=== PATIENT | female | born 1930 | race Caucasian/White ===

== ENCOUNTER → 2016-07-06 | Outpatient (CLI) | payer MEDICARE, OTHER ==
[2016-07-06 08:13] LABS: INR 2.97
== END ==
LOC: M LAB 06:56
PROVIDERS: ATTEND Emergency Medicine
DX: I48.91 Unspecified atrial fibrillation (principal); Z79.01 Long term (current) use of anticoagulants

== ENCOUNTER → 2016-08-04 | Outpatient (CLI) | payer MEDICARE, OTHER ==
[2016-08-04 10:00] LABS: INR 2.84
== END ==
LOC: M LAB 09:16
PROVIDERS: ATTEND Emergency Medicine
DX: I48.91 Unspecified atrial fibrillation (principal)

== ENCOUNTER → 2016-09-03 | Outpatient (CLI) | payer MEDICARE, OTHER ==
[2016-09-03 07:56] LABS: INR 2.14
== END ==
LOC: M LAB 07:05
PROVIDERS: ATTEND Emergency Medicine
DX: Z51.81 Encounter for therapeutic drug level monitoring (principal); Z79.01 Long term (current) use of anticoagulants

== ENCOUNTER → 2016-10-02 | Outpatient (CLI) | payer MEDICARE, OTHER ==
[2016-10-02 09:58] LABS: ALBUMIN 3.6 GM/DL (3.2-5.2); ALBUMIN/GLOBULIN RATIO 1.06 (1.00-1.93); BILIRUBIN,TOTAL 0.6 MG/DL (0.2-1.0); CALCIUM LEVEL 8.1 MG/DL (8.8-10.2); CREATININE FOR GFR 1.01 MG/DL (0.55-1.02); FREE T4 1.03 NG/DL (0.76-1.46); GLOMERULAR FILTRATION RATE 55.7 (>32); POTASSIUM SERUM 3.4 MEQ/L (3.5-5.1)
== END ==
LOC: M LAB 08:21
PROVIDERS: ATTEND Emergency Medicine
DX: I10 Essential (primary) hypertension (principal); E78.2 Mixed hyperlipidemia; E55.9 Vitamin D deficiency, unspecified; E03.9 Hypothyroidism, unspecified

== ENCOUNTER → 2016-11-29 | Outpatient (CLI) | payer MEDICARE, OTHER ==
[~2016-11-29] MED LIST: ALEN35TA; ALEN35TA PO; AMLO2.5T; AMLO2.5T PO; ATOR1TAB21; ATOR1TAB21 PO; BISO10TA6; BISO10TA6 PO; DIGO0.12; DIGO0.12 PO; FURO40TA2; FURO40TA2 PO; ICAPCAP PO; LEVO100T5; LEVO100T54 PO; LISI-538; LISI-538 PO; POTA10CA PO; POTA1TAB23; SYST1SOL OU; TELM1TAB2; TELM1TAB2 PO; VITMTA PO; WARF-23; WARF-60 PO; WARF4TAB52; ZADI1DRO OU
[2016-11-29 10:19] LABS: INR 2.21
== END ==
LOC: M LAB 08:29
PROVIDERS: ATTEND Emergency Medicine
DX: I48.2 Chronic atrial fibrillation (principal)

== ENCOUNTER 2016-12-08 11:03 | Emergency (ER) | payer MEDICARE, OTHER ==
[~2016-12-08] VITALS: Ht 162.6 cm; Wt 54.5 kg
[2016-12-08] MEDS ORDERED: FURO40TA2 (11:37)
[2016-12-08] MEDS ORDERED: LISI-538 (11:37)
[2016-12-08] MEDS ORDERED: POTA1TAB23 (11:37)
[2016-12-08] MEDS ORDERED: WARF4TAB52 (11:37)
[2016-12-08] MEDS ORDERED: TELM1TAB2 (11:37)
[2016-12-08] MEDS ORDERED: LEVO100T5 (11:37)
[2016-12-08] MEDS ORDERED: BISO10TA6 (11:37)
[2016-12-08] MEDS ORDERED: ATOR1TAB21 (11:37)
[2016-12-08] MEDS ORDERED: WARF-23 (11:37)
[2016-12-08] MEDS ORDERED: ALEN35TA (11:37)
[2016-12-08] MEDS ORDERED: DIGO0.12 (11:37)
[2016-12-08] MEDS ORDERED: AMLO2.5T (11:37)
[2016-12-08] MEDS ORDERED: ASPIRIN 81 MG CHEW TABLET PO ONE (12:30)
[2016-12-08 12:50] LABS: INR 2.33
[2016-12-08 12:54] LABS: BASO % 0.5 % (0.0-1.0); EOS # 0.1 K/mm3 (0.0-0.50); EOS % 1.8 % (0.0-3.0); LARGE UNSTAINED CELL # 0.1 K/mm3 (0.0-0.4); LARGE UNSTAINED CELL % 1.7 % (0.0-4.0); LYMPH # 1.4 K/mm3 (1.5-4.5); LYMPH % 17.9 % (24.0-44.0); MEAN CORPUSCULAR HEMOGLOBIN 31.8 pg (27.0-33.0); MEAN CORPUSCULAR HGB CONC 33.3 g/dl (32.0-36.5); MEAN CORPUSCULAR VOLUME 95.5 fl (80.0-96.0); MONO # 0.4 K/mm3 (0.0-0.8); NEUTROPHILS # 5.1 K/mm3 (1.8-7.7); NEUTROPHILS % 72.1 % (36.0-66.0); PLATELET COUNT, AUTOMATED 142 k/mm3 (150-450); RED CELL DISTRIBUTION WIDTH 13.2 % (11.5-14.5); WHITE BLOOD COUNT 7.1 K/mm3 (4.0-10.0)
--- NOTE | 2016-12-08 13:03 | REP ---
Chest one-view HISTORY: Chest pain Comparison: 12/17/2010 The lungs are clear. The cardiac silhouette is enlarged. The pulmonary vasculature is normal in appearance. A cardiac pacemaker is present. Impression: Cardiomegaly. Signed by Kelvin Charles MD 12/08/2016 12:55 P
--- NOTE | 2016-12-08 13:06 | REP ---
CT HEAD WITHOUT CONTRAST: HISTORY: Dizziness. COMPARISON: 03/12/2016 Areas of decreased attenuation are present in the periventricular white matter. This represents small vessel ischemic disease. There is no intraparenchymal hemorrhage, infarct, mass or midline shift. The ventricular system and cortical sulci as well as subarachnoid space in the posterior fossa are dilated consistent with moderate volume loss. There is no extracerebral collection. The visualized sinuses are clear. IMPRESSION: 1. Small vessel ischemic disease. 2. Moderate volume loss. Signed by Kelvin Charles MD 12/08/2016 01:17 P
[2016-12-08 13:07] LABS: CALCIUM LEVEL 8.5 MG/DL (8.8-10.2); CREATININE FOR GFR 0.97 MG/DL (0.55-1.02); GLOMERULAR FILTRATION RATE 58.2 (>32); POTASSIUM SERUM 3.5 MEQ/L (3.5-5.1)
[2016-12-08 13:23] LABS: DIGOXIN LEVEL 1.4 NG/ML (0.5-2.0)
--- NOTE | 2016-12-08 16:31 | ECGEPIP ---
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
--- NOTE | 2016-12-08 16:33 | ECGEPIP ---
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
[2016-12-08 18:08] VITALS: BP 172/80
[2016-12-08] MEDS ORDERED: ALEN35TA PO (18:09)
--- NOTE | 2016-12-08 18:09 | IPNPDOC ---
Text Note Date of Service The patient was seen on 12/08/16. NOTE 86-year-old female with past medical history of hypothyroidism, vitamin D deficiency, hypertension, dyslipidemia, AR status post CABG in 2001, atrial fibrillation on Coumadin, history of nonsustained ventricular tachycardia, and permanent pacemaker with a ventricular paced rhythm presented to the ER with a chief complaint of chest pain. Upon evaluation the patient states that she had a five-minute episode of chest pain 3 days ago while at home. She describes the chest pain as sharp, 3 out of 10 in intensity, with some radiation to the left shoulder. She states that the pain was at rest. She notes that she thought the pain was related to reflux or gas as she had recently just eaten. After the single episode dissipated, she no longer had any recurrent events. She states that she is relatively healthy, and has not had any further episodes of chest pain even with moderate exertion. She denies any associated fevers, chills, shortness of breath, palpitations, abdominal pain, or any nausea/vomiting. The patient states that she came to the ER 3 days later after talking to her family and friends to "rule out anything serious" that may be going on. She reports that the episode of chest pain that she had was nothing like the AR that she had in 2001. She denies any similar occurrences. In the ER, an EKG revealed a ventricular paced rhythm. Two troponin levels have been drawn 3+ hours apart and have been within normal limits. At this time, the patient states that she is feeling well and just wanted to make sure that she got a checkup. She reports that she is eager to return home at this time. I have discussed, ideally the need to monitor her for 24 hours given her cardiac history. I did discuss the potential benefits of telemetry monitoring, serial lab work, and clinical observation with the patient. In addition, I did discuss the risks of foregoing observation with the patient which include a possible recurrence of the episode; which may possibly include a cardiac event leading to possible --At this time, the patient and her daughter who is at the bedside verbalized understanding of this and state that the patient will be closely monitored at home, and should there be a return of any symptoms, they will return to the ER for further evaluation and management. I did discuss the above findings with Dr. Givens in the ER, and we will try to arrange a close outpatient follow up with our on-call steel layer, Dr. Cabral, and the patient's PCP, Dr. Cade. General Exam: Awake, alert, oriented 4, in no acute distress, resting comfortably in bed HEENT: Normocephalic, atraumatic Heart: Normal Rate, Normal S1, S2 Chest: Clear to auscultation bilaterally, Surgical Scar noted across sternum from previous CABG Abdomen: Soft, Non-tender, Non-distended Extremities: No tenderness, No swelling VS,Fishbone, I+O VS, Fishbone, I+O Laboratory Tests 12/08/16 12:28 Red Blood Count 4.27, Mean Corpuscular Volume 95.5, Mean Corpuscular Hemoglobin 31.8, Mean Corpuscular Hemoglobin Concent 33.3, Red Cell Distribution Width 13.2 , Neutrophils (%) (Auto) 72.1 H, Lymphocytes (%) (Auto) 17.9 L, Monocytes (%) ( Auto) 6.0 H, Eosinophils (%) (Auto) 1.8, Basophils (%) (Auto) 0.5, Neutrophils # (Auto) 5.1, Lymphocytes # (Auto) 1.4 L, Monocytes # (Auto) 0.4, Eosinophils # (Auto) 0.1, Basophils # (Auto) 0.0, Calcium Level 8.5 L, Total Creatine Kinase 112 Vital Signs Date Time Temp Pulse Resp B/P (MAP) Pulse Ox O2 Delivery O2 Flow Rate FiO2 12/08/16 17:08 166/77 (106) 12/08/16 16:57 68 98 12/08/16 11:42 18 12/08/16 11:38 Room Air 12/08/16 11:20 98.0 SANTIAGO DORSEY MD Dec 08, 2016 18:09
[2016-12-08] MEDS ORDERED: ATOR1TAB21 PO (18:10)
[2016-12-08] MEDS ORDERED: BISO10TA6 PO (18:10)
[2016-12-08] MEDS ORDERED: AMLO2.5T PO (18:10)
[2016-12-08] MEDS ORDERED: FURO40TA2 PO (18:10)
[2016-12-08] MEDS ORDERED: DIGO0.12 PO (18:10)
--- NOTE | 2016-12-08 18:10 | ED PDOC ---
Post-Departure Follow-Up I was approached by the hospitalist called for admission on the patient. He evaluated the patient in the ED and felt that as the patient had a single episode of chest pain on Tuesday and two sets of negative enzymes. Patient adamantly refused admission. I discussed with Dr. Cabral who will follow patient as an outpatient. Abi Kay MD Dec 08, 2016 18:10
[2016-12-08] MEDS ORDERED: LEVO100T54 PO (18:12)
[2016-12-08] MEDS ORDERED: LISI-538 PO (18:12)
[2016-12-08] MEDS ORDERED: POTA10CA PO (18:12)
[2016-12-08] MEDS ORDERED: ZADI1DRO OU (18:14)
[2016-12-08] MEDS ORDERED: ICAPCAP PO (18:14)
[2016-12-08] MEDS ORDERED: WARF-60 PO (18:14)
[2016-12-08] MEDS ORDERED: TELM1TAB2 PO (18:14)
[2016-12-08] MEDS ORDERED: SYST1SOL OU ×2 (18:14)
[2016-12-08] MEDS ORDERED: VITMTA PO (18:14)
== END 2016-12-08 18:30 | disposition home or self-care (01) ==
LOC: EDBD 11:03 → EDSEX 11:03 → M ED 12:12
DX: R07.89 Other chest pain (principal); I51.7 Cardiomegaly; I48.91 Unspecified atrial fibrillation; I25.10 Atherosclerotic heart disease of native coronary artery without angina pectoris; I25.2 Old myocardial infarction; I10 Essential (primary) hypertension; Z95.0 Presence of cardiac pacemaker; Z95.1 Presence of aortocoronary bypass graft; Z79.01 Long term (current) use of anticoagulants; Z79.899 Other long term (current) drug therapy; Z88.2 Allergy status to sulfonamides

== ENCOUNTER → 2016-12-29 | Outpatient (CLI) | payer MEDICARE, OTHER ==
[2016-12-29 06:42] LABS: INR 1.95
== END ==
LOC: M LAB 06:12
PROVIDERS: ATTEND Emergency Medicine
DX: I48.2 Chronic atrial fibrillation (principal)

== ENCOUNTER → 2017-01-12 | Outpatient (CLI) | payer MEDICARE, OTHER ==
[2017-01-12 07:48] LABS: INR 1.84
== END ==
LOC: M LAB 06:49
PROVIDERS: ATTEND Emergency Medicine
DX: I48.2 Chronic atrial fibrillation (principal)

== ENCOUNTER → 2017-01-26 | Outpatient (CLI) | payer MEDICARE, OTHER ==
[2017-01-26 08:18] LABS: INR 3.33
== END ==
LOC: M LAB 07:16
PROVIDERS: ATTEND Emergency Medicine
DX: I48.2 Chronic atrial fibrillation (principal)

== ENCOUNTER → 2017-02-25 | Outpatient (CLI) | payer MEDICARE, OTHER ==
[2017-02-25 08:03] LABS: INR 2.45
== END ==
LOC: M LAB 07:18
PROVIDERS: ATTEND Emergency Medicine
DX: I48.2 Chronic atrial fibrillation (principal)

== ENCOUNTER → 2017-03-28 | Outpatient (CLI) | payer MEDICARE, OTHER ==
[2017-03-28 08:22] LABS: INR 2.31
== END ==
LOC: M LAB 07:23
PROVIDERS: ATTEND Emergency Medicine
DX: I48.2 Chronic atrial fibrillation (principal)

== ENCOUNTER → 2017-03-29 | Outpatient (CLI) | payer MEDICARE, OTHER ==
[2017-03-29 10:57] LABS: ALBUMIN 3.5 GM/DL (3.2-5.2); ALBUMIN/GLOBULIN RATIO 0.97 (1.00-1.93); BILIRUBIN,TOTAL 0.4 MG/DL (0.2-1.0); CALCIUM LEVEL 8.6 MG/DL (8.8-10.2); CREATININE FOR GFR 1.27 MG/DL (0.55-1.02); FREE T4 0.96 NG/DL (0.76-1.46); GLOMERULAR FILTRATION RATE 42.7 (>32); MAGNESIUM LEVEL 2.4 MG/DL (1.8-2.4); POTASSIUM SERUM 3.8 MEQ/L (3.5-5.1); TOTAL PROTEIN 7.1 GM/DL (6.4-8.2)
== END ==
LOC: M LAB 07:21
PROVIDERS: ATTEND Emergency Medicine
DX: I10 Essential (primary) hypertension (principal); E55.9 Vitamin D deficiency, unspecified; E03.9 Hypothyroidism, unspecified; E78.2 Mixed hyperlipidemia; I47.2 Ventricular tachycardia; Z79.899 Other long term (current) drug therapy

== ENCOUNTER → 2017-05-31 | Outpatient (CLI) | payer MEDICARE, OTHER ==
[2017-05-31 07:45] LABS: INR 2.73
== END ==
LOC: M LAB 06:51
PROVIDERS: ATTEND Emergency Medicine
DX: I48.2 Chronic atrial fibrillation (principal)

== ENCOUNTER → 2017-06-29 | Outpatient (CLI) | payer MEDICARE, OTHER ==
[2017-06-29 14:54] LABS: PROTHROMBIN TIME 28.9 SECONDS (12.4-14.5)
== END ==
LOC: M LAB 14:03
DX: I48.2 Chronic atrial fibrillation (principal)
CPT/HCPCS: 85610

== ENCOUNTER → 2017-07-29 | Outpatient (CLI) | payer MEDICARE, OTHER ==
[2017-07-29 14:25] LABS: INR 2.51; PROTHROMBIN TIME 28.1 SECONDS (12.4-14.5)
== END ==
LOC: M LAB 13:18
DX: I48.2 Chronic atrial fibrillation (principal)
CPT/HCPCS: 85610

== ENCOUNTER → 2017-08-25 | Outpatient (CLI) | payer MEDICARE, OTHER ==
[2017-08-25 08:12] LABS: INR 2.51; PROTHROMBIN TIME 28.1 SECONDS (12.4-14.5)
== END ==
LOC: M LAB 07:14
DX: I48.2 Chronic atrial fibrillation (principal)
CPT/HCPCS: 85610

== ENCOUNTER → 2017-09-20 | Outpatient (REF) | payer MEDICARE, OTHER | LOC: M LAB REF 19:18 | DX: N30.01 Acute cystitis with hematuria (principal) | CPT/HCPCS: 87186 ==

== ENCOUNTER → 2017-11-25 | Outpatient (CLI) | payer MEDICARE, OTHER ==
[2017-11-25 08:26] LABS: INR 2.59; PROTHROMBIN TIME 28.8 SECONDS (12.4-14.5)
[2017-11-25 08:42] LABS: ALBUMIN 3.4 GM/DL (3.2-5.2); ALBUMIN/GLOBULIN RATIO 0.94 (1.00-1.93); ALKALINE PHOSPHATASE 124 U/L (45-117); ALT/SGPT 27 U/L (12-78); ANION GAP 7 MEQ/L (8-16); AST/SGOT 21 U/L (7-37); BILIRUBIN,TOTAL 0.5 MG/DL (0.2-1.0); BLOOD UREA NITROGEN 18 MG/DL (7-18); CALCIUM LEVEL 8.2 MG/DL (8.8-10.2); CARBON DIOXIDE LEVEL 29 MEQ/L (21-32); CHLORIDE LEVEL 106 MEQ/L (98-107); CHOLESTEROL LEVEL 124 MG/DL (<200); CREATININE FOR GFR 1.43 MG/DL (0.55-1.30); FREE T4 0.87 NG/DL (0.76-1.46); GLOMERULAR FILTRATION RATE 37.1 (>32); GLUCOSE, FASTING 120 MG/DL (70-100); HDL CHOLESTEROL 49 MG/DL (>40); LDL CHOLESTEROL 47.4 MG/DL (<100); MAGNESIUM LEVEL 2.6 MG/DL (1.8-2.4); NON-HDL-C 75 MG/DL; POTASSIUM SERUM 3.3 MEQ/L (3.5-5.1); SODIUM LEVEL 142 MEQ/L (136-145); TRIGLYCERIDES LEVEL 138 MG/DL (<150)
[2017-11-25 13:06] LABS: TOTAL 25(OH) VITAMIN D 23.9 NG/ML (30.0-100.0)
== END ==
LOC: M LAB 07:14
DX: Z79.01 Long term (current) use of anticoagulants (principal); I48.2 Chronic atrial fibrillation; I10 Essential (primary) hypertension; E55.9 Vitamin D deficiency, unspecified; E03.9 Hypothyroidism, unspecified
CPT/HCPCS: 83735

== ENCOUNTER → 2017-12-26 | Outpatient (CLI) | payer MEDICARE, OTHER ==
[2017-12-26 08:05] LABS: INR 3.31; PROTHROMBIN TIME 34.4 SECONDS (12.1-14.4)
== END ==
LOC: M LAB 06:42
DX: I48.2 Chronic atrial fibrillation (principal)
CPT/HCPCS: 85610

== ENCOUNTER → 2018-01-26 | Outpatient (CLI) | payer MEDICARE, OTHER ==
[2018-01-26 08:07] LABS: INR 2.47; PROTHROMBIN TIME 27.2 SECONDS (12.1-14.4)
== END ==
LOC: M LAB 06:47
DX: Z51.81 Encounter for therapeutic drug level monitoring (principal); Z79.01 Long term (current) use of anticoagulants; I48.2 Chronic atrial fibrillation
CPT/HCPCS: 85610

== ENCOUNTER → 2018-02-28 | Outpatient (CLI) | payer MEDICARE, OTHER ==
[2018-02-28 09:20] LABS: INR 2.17; PROTHROMBIN TIME 24.6 SECONDS (12.1-14.4)
== END ==
LOC: M LAB 08:20
DX: I48.2 Chronic atrial fibrillation (principal)
CPT/HCPCS: 85610

== ENCOUNTER → 2018-03-27 | Outpatient (REF) | payer MEDICARE, OTHER ==
[2018-03-27 11:11] LABS: INR 3.18; PROTHROMBIN TIME 33.3 SECONDS (12.1-14.4)
== END ==
LOC: M LABDRWAD 10:16
DX: I48.2 Chronic atrial fibrillation (principal)
CPT/HCPCS: 85610

== ENCOUNTER → 2018-04-10 | Outpatient (REF) | payer MEDICARE, OTHER ==
[2018-04-10 13:13] LABS: ALBUMIN 3.3 GM/DL (3.2-5.2); ALBUMIN/GLOBULIN RATIO 0.97 (1.00-1.93); ALKALINE PHOSPHATASE 123 U/L (45-117); ALT/SGPT 27 U/L (12-78); ANION GAP 7 MEQ/L (8-16); AST/SGOT 23 U/L (7-37); BILIRUBIN,TOTAL 0.5 MG/DL (0.2-1.0); BLOOD UREA NITROGEN 20 MG/DL (7-18); CARBON DIOXIDE LEVEL 31 MEQ/L (21-32); CHLORIDE LEVEL 108 MEQ/L (98-107); CHOLESTEROL LEVEL 138 MG/DL (<200); CHOLESTEROL RISK RATIO 2.875 (<5); CREATININE FOR GFR 1.36 MG/DL (0.55-1.30); FREE T4 0.91 NG/DL (0.76-1.46); GLOMERULAR FILTRATION RATE 39.3 (>32); GLUCOSE, FASTING 96 MG/DL (70-100); HDL CHOLESTEROL 48 MG/DL (>40); LDL CHOLESTEROL 70 MG/DL (<100); MAGNESIUM LEVEL 2.6 MG/DL (1.8-2.4); NON-HDL-C 90 MG/DL; POTASSIUM SERUM 4.1 MEQ/L (3.5-5.1); SODIUM LEVEL 146 MEQ/L (136-145); TOTAL 25(OH) VITAMIN D 47.4 NG/ML (30.0-100.0); TOTAL PROTEIN 6.7 GM/DL (6.4-8.2); TRIGLYCERIDES LEVEL 101 MG/DL (<150)
== END ==
LOC: M LABDRWAD 12:24
DX: E55.9 Vitamin D deficiency, unspecified (principal); E03.9 Hypothyroidism, unspecified; I47.2 Ventricular tachycardia; I10 Essential (primary) hypertension
CPT/HCPCS: 83735

== ENCOUNTER → 2018-04-14 | Outpatient (CLI) | payer MEDICARE, OTHER ==
[2018-04-14 13:04] LABS: INR 2.95; PROTHROMBIN TIME 31.4 SECONDS (12.1-14.4)
== END ==
LOC: M ADAMS 10:59
DX: I48.2 Chronic atrial fibrillation (principal)
CPT/HCPCS: 85610

== ENCOUNTER → 2018-04-28 | Outpatient (REF) | payer MEDICARE, OTHER ==
[2018-04-28 14:04] LABS: INR 2.71; PROTHROMBIN TIME 29.3 SECONDS (12.1-14.4)
== END ==
LOC: M LABDRWAD 12:37
DX: I48.2 Chronic atrial fibrillation (principal)
CPT/HCPCS: 85610

== ENCOUNTER → 2018-05-12 | Outpatient (REF) | payer MEDICARE, OTHER ==
[2018-05-12 13:19] LABS: INR 3.25; PROTHROMBIN TIME 33.9 SECONDS (12.1-14.4)
== END ==
LOC: M LABDRWAD 12:34
DX: I48.2 Chronic atrial fibrillation (principal)
CPT/HCPCS: 85610

== ENCOUNTER → 2018-05-22 | Outpatient (REF) | payer MEDICARE, OTHER ==
[2018-05-22 13:33] LABS: INR 2.53; PROTHROMBIN TIME 27.8 SECONDS (12.1-14.4)
== END ==
LOC: M LAB REF 12:32
DX: I48.2 Chronic atrial fibrillation (principal)
CPT/HCPCS: 85610

== ENCOUNTER → 2018-06-05 | Outpatient (REF) | payer MEDICARE, OTHER ==
[2018-06-05 13:05] LABS: INR 3.83; PROTHROMBIN TIME 38.6 SECONDS (12.1-14.4)
== END ==
LOC: M LABDRWAD 12:29
DX: I48.2 Chronic atrial fibrillation (principal)
CPT/HCPCS: 85610

== ENCOUNTER → 2018-06-09 | Outpatient (REF) | payer MEDICARE, OTHER ==
[2018-06-09 10:26] LABS: INR 2.71; PROTHROMBIN TIME 29.3 SECONDS (12.1-14.4)
== END ==
LOC: M LABDRWAD 09:54
DX: I48.2 Chronic atrial fibrillation (principal)
CPT/HCPCS: 85610

== ENCOUNTER → 2018-07-31 | Outpatient (REF) | payer MEDICARE, OTHER ==
[~2018-07-31] MED LIST changes: -ALEN35TA; -ALEN35TA PO; +ALEN35TA37; +ALEN35TA37 PO; -AMLO2.5T; -AMLO2.5T PO; +AMLO2.5T3; +AMLO2.5T3 PO; +KLOR10TA76 PO; -POTA10CA PO; -TELM1TAB2; -TELM1TAB2 PO; +TELM1TAB37; +TELM1TAB37 PO
[2018-07-31 13:57] LABS: INR 3.01; PROTHROMBIN TIME 31.9 SECONDS (12.1-14.4)
== END ==
LOC: M LABDRWAD 12:11
PROVIDERS: ATTEND Emergency Medicine
DX: I48.2 Chronic atrial fibrillation (principal)

== ENCOUNTER → 2018-08-25 | Outpatient (REF) | payer MEDICARE, OTHER ==
[2018-08-25 12:49] LABS: INR 3.75
== END ==
LOC: M LABDRWAD 12:19
PROVIDERS: ATTEND Emergency Medicine
DX: I48.2 Chronic atrial fibrillation (principal); Z79.01 Long term (current) use of anticoagulants

== ENCOUNTER → 2018-08-31 | Outpatient (REF) | payer MEDICARE, OTHER ==
[2018-08-31 13:31] LABS: THYROID STIMULATING HORMONE 5.04 uIU/ML (0.358-3.740)
== END ==
LOC: M LABDRWAD 12:22
PROVIDERS: ATTEND Physician Assistant
DX: E03.9 Hypothyroidism, unspecified (principal)

== ENCOUNTER → 2018-09-20 | Outpatient (REF) | payer MEDICARE, OTHER ==
[2018-09-20 13:08] LABS: FREE T4 1.14 NG/DL (0.76-1.46); THYROID STIMULATING HORMONE 4.77 uIU/ML (0.358-3.740)
== END ==
LOC: M LABDRWAD 12:04
PROVIDERS: ATTEND Physician Assistant
DX: E03.9 Hypothyroidism, unspecified (principal)

== ENCOUNTER → 2018-09-25 | Outpatient (REF) | payer MEDICARE, OTHER ==
[2018-09-25 13:16] LABS: INR 3.24; PROTHROMBIN TIME 33.8 SECONDS (12.1-14.4)
== END ==
LOC: M LABDRWAD 12:08
PROVIDERS: ATTEND Physician Assistant
DX: I47.2 Ventricular tachycardia (principal); Z79.01 Long term (current) use of anticoagulants

== ENCOUNTER → 2018-11-27 | Outpatient (REF) | payer MEDICARE, OTHER ==
[2018-11-27 13:34] LABS: ALBUMIN 3.6 GM/DL (3.2-5.2); BILIRUBIN,TOTAL 0.5 MG/DL (0.2-1.0); CALCIUM LEVEL 8.6 MG/DL (8.8-10.2); CHOLESTEROL RISK RATIO 2.333 (<5); CREATININE FOR GFR 1.36 MG/DL (0.55-1.30); FREE T4 1.05 NG/DL (0.76-1.46); GLOMERULAR FILTRATION RATE 39.2 (>32); POTASSIUM SERUM 3.2 MEQ/L (3.5-5.1); THYROID STIMULATING HORMONE 5.22 uIU/ML (0.358-3.740); TOTAL PROTEIN 7.3 GM/DL (6.4-8.2)
[2018-11-27 13:35] LABS: TOTAL 25(OH) VITAMIN D 42.6 NG/ML (30.0-100.0)
== END ==
LOC: M LABDRWAD 12:45
PROVIDERS: ATTEND Physician Assistant
DX: I10 Essential (primary) hypertension (principal); E78.2 Mixed hyperlipidemia; E03.9 Hypothyroidism, unspecified; E55.9 Vitamin D deficiency, unspecified

== ENCOUNTER → 2018-12-12 | Outpatient (REF) | payer MEDICARE, OTHER ==
[2018-12-12 12:40] LABS: CALCIUM LEVEL 8.6 MG/DL (8.8-10.2); CREATININE FOR GFR 1.33 MG/DL (0.55-1.30); GLOMERULAR FILTRATION RATE 40.3 (>32); POTASSIUM SERUM 3.4 MEQ/L (3.5-5.1)
[2018-12-12 12:57] LABS: INR 3.62; PROTHROMBIN TIME 36.9 SECONDS (12.1-14.4)
== END ==
LOC: M LABDRWAD 12:04
PROVIDERS: ATTEND Physician Assistant
DX: E87.6 Hypokalemia (principal); Z79.01 Long term (current) use of anticoagulants

== ENCOUNTER → 2018-12-15 | Outpatient (REF) | payer MEDICARE, OTHER ==
[2018-12-15 13:42] LABS: INR 3.25; PROTHROMBIN TIME 33.1 SECONDS (11.8-14.0)
== END ==
LOC: M LAB REF 12:55
PROVIDERS: ATTEND Physician Assistant
DX: I47.2 Ventricular tachycardia (principal); Z79.01 Long term (current) use of anticoagulants

== ENCOUNTER → 2018-12-19 | Outpatient (REF) | payer MEDICARE, OTHER ==
[2018-12-19 13:59] LABS: INR 1.95
== END ==
LOC: M LABDRWAD 12:21
PROVIDERS: ATTEND Physician Assistant
DX: I47.2 Ventricular tachycardia (principal); Z79.01 Long term (current) use of anticoagulants

== ENCOUNTER → 2018-12-26 | Outpatient (REF) | payer MEDICARE, OTHER ==
[~2018-12-26] MED LIST changes: -BISO10TA6; -BISO10TA6 PO; +BISO10TA7; +BISO10TA7 PO
[2018-12-26 13:50] LABS: INR 2.05; PROTHROMBIN TIME 22.9 SECONDS (11.8-14.0)
== END ==
LOC: M LABDRWAD 12:30
PROVIDERS: ATTEND Physician Assistant
DX: I48.2 Chronic atrial fibrillation (principal); Z79.01 Long term (current) use of anticoagulants

== ENCOUNTER → 2018-12-29 | Outpatient (REF) | payer MEDICARE, OTHER ==
[2018-12-29 13:20] LABS: INR 2.12; PROTHROMBIN TIME 23.5 SECONDS (11.8-14.0)
== END ==
LOC: M LABDRWAD 12:57
PROVIDERS: ATTEND Physician Assistant
DX: I47.2 Ventricular tachycardia (principal); Z79.01 Long term (current) use of anticoagulants

== ENCOUNTER → 2019-01-12 | Outpatient (REF) | payer MEDICARE, OTHER | LOC: M SFHCADAM 12:09 | PROVIDERS: ATTEND Family Medicine | DX: R30.0 Dysuria (principal); I48.91 Unspecified atrial fibrillation | CPT/HCPCS: 81002; 85610; 87088; 87186; G0463 ==

== ENCOUNTER → 2019-01-15 | Outpatient (REF) | payer MEDICARE, OTHER ==
[2019-01-15 13:20] LABS: INR 1.66; PROTHROMBIN TIME 19.3 SECONDS (11.8-14.0)
== END ==
LOC: M LAB REF 12:52 → M LABDRWAD 12:52
PROVIDERS: ATTEND Physician Assistant
DX: I47.2 Ventricular tachycardia (principal); Z79.01 Long term (current) use of anticoagulants

== ENCOUNTER → 2019-01-18 | Outpatient (REF) | payer MEDICARE, OTHER ==
[2019-01-18 20:09] LABS: INR 1.82; PROTHROMBIN TIME 20.8 SECONDS (11.8-14.0)
== END ==
LOC: M LABDRWAD 19:19
PROVIDERS: ATTEND Physician Assistant
DX: I47.2 Ventricular tachycardia (principal); Z79.01 Long term (current) use of anticoagulants

== ENCOUNTER → 2019-01-24 | Outpatient (REF) | payer MEDICARE, OTHER ==
[2019-01-24 12:57] LABS: INR 2.29
== END ==
LOC: M LAB REF 12:11
PROVIDERS: ATTEND Physician Assistant
DX: I48.2 Chronic atrial fibrillation (principal); Z79.01 Long term (current) use of anticoagulants

== ENCOUNTER → 2019-02-05 | Outpatient (REF) | payer MEDICARE, OTHER ==
[~2019-02-05] MED LIST changes: +BISO10TA10; +BISO10TA10 PO; -BISO10TA7; -BISO10TA7 PO
[2019-02-05 13:51] LABS: INR 2.61; PROTHROMBIN TIME 27.8 SECONDS (11.8-14.0)
== END ==
LOC: M LABDRWAD 12:11
PROVIDERS: ATTEND Physician Assistant
DX: I47.2 Ventricular tachycardia (principal); Z79.01 Long term (current) use of anticoagulants

== ENCOUNTER → 2019-02-27 | Outpatient (REF) | payer MEDICARE, OTHER ==
[2019-02-27 14:23] LABS: CALCIUM LEVEL 8.5 MG/DL (8.8-10.2); CREATININE FOR GFR 1.35 MG/DL (0.55-1.30); GLOMERULAR FILTRATION RATE 39.6 (>32); POTASSIUM SERUM 3.2 MEQ/L (3.5-5.1)
== END ==
LOC: M LABDRWAD 12:36
PROVIDERS: ATTEND Physician Assistant
DX: E87.6 Hypokalemia (principal)

== ENCOUNTER → 2019-03-12 | Outpatient (REF) | payer MEDICARE, OTHER ==
[2019-03-12 13:56] LABS: INR 1.9; PROTHROMBIN TIME 21.6 SECONDS (11.8-14.0)
== END ==
LOC: M LABDRWAD 12:13
PROVIDERS: ATTEND Physician Assistant
DX: I47.2 Ventricular tachycardia (principal); Z79.01 Long term (current) use of anticoagulants

== ENCOUNTER → 2019-03-20 | Outpatient (REF) | payer MEDICARE, OTHER ==
[2019-03-20 13:07] LABS: INR 2.61; PROTHROMBIN TIME 27.8 SECONDS (11.8-14.0)
== END ==
LOC: M LABDRWAD 12:08
PROVIDERS: ATTEND Physician Assistant
DX: I47.2 Ventricular tachycardia (principal); Z79.01 Long term (current) use of anticoagulants

== ENCOUNTER → 2019-04-30 | Outpatient (REF) | payer MEDICARE, OTHER ==
[~2019-04-30] MED LIST changes: -ALEN35TA37; -ALEN35TA37 PO; +ALEN35TA6; +ALEN35TA6 PO
[2019-04-30 13:55] LABS: INR 3.54; PROTHROMBIN TIME 35.5 SECONDS (11.8-14.0)
== END ==
LOC: M LABDRWAD 12:47
PROVIDERS: ATTEND Physician Assistant
DX: I47.2 Ventricular tachycardia (principal); Z79.02 Long term (current) use of antithrombotics/antiplatelets

== ENCOUNTER → 2019-05-01 | Outpatient (REF) | payer MEDICARE, OTHER ==
[2019-05-01 13:51] LABS: HEMOGLOBIN 12.6 g/dl (12.0-15.5); MEAN CORPUSCULAR HEMOGLOBIN 30.7 pg (27.0-33.0); MEAN CORPUSCULAR HGB CONC 31.5 g/dl (32.0-36.5); MEAN CORPUSCULAR VOLUME 97.6 fl (80.0-96.0); PLATELET COUNT, AUTOMATED 178 10^3/uL (150-450); WHITE BLOOD COUNT 7.8 10^3/uL (4.0-10.0)
[2019-05-01 14:41] LABS: ALBUMIN 3.7 GM/DL (3.2-5.2); BILIRUBIN,TOTAL 0.7 MG/DL (0.2-1.0); CREATININE FOR GFR 1.43 MG/DL (0.55-1.30); DIGOXIN LEVEL 2.1 NG/ML (0.5-2.0); FREE T4 1.02 NG/DL (0.76-1.46); MAGNESIUM LEVEL 2.7 MG/DL (1.8-2.4); POTASSIUM SERUM 3.8 MEQ/L (3.5-5.1); THYROID STIMULATING HORMONE 6.36 uIU/ML (0.358-3.740); TOTAL PROTEIN 7.2 GM/DL (6.4-8.2)
== END ==
LOC: M SFHCADAM 10:13
PROVIDERS: ATTEND Physician Assistant
DX: I48.91 Unspecified atrial fibrillation (principal); I10 Essential (primary) hypertension; E03.9 Hypothyroidism, unspecified; E87.6 Hypokalemia
CPT/HCPCS: 80053; 80162; 83735; 84439; 84443; 85027; G0463

== ENCOUNTER → 2019-06-15 | Outpatient (REF) | payer MEDICARE, OTHER ==
[~2019-06-15] MED LIST changes: -BISO10TA10; -BISO10TA10 PO; +BISO10TA14; +BISO10TA14 PO
== END ==
LOC: M SFHCADAM 08:13
PROVIDERS: ATTEND Physician Assistant
DX: I48.91 Unspecified atrial fibrillation (principal)
CPT/HCPCS: 80162; 85610; G0463

== ENCOUNTER → 2019-09-20 | Outpatient (REF) | payer MEDICARE, OTHER ==
[2019-09-20 12:41] LABS: HEMATOCRIT 40.1 % (36.0-47.0); HEMOGLOBIN 12.6 g/dl (12.0-15.5); MEAN CORPUSCULAR HEMOGLOBIN 29.5 pg (27.0-33.0); MEAN CORPUSCULAR HGB CONC 31.4 g/dl (32.0-36.5); MEAN CORPUSCULAR VOLUME 93.9 fl (80.0-96.0); PLATELET COUNT, AUTOMATED 297 10^3/uL (150-450); RED BLOOD COUNT 4.27 10^6/uL (4.00-5.40); WHITE BLOOD COUNT 8.6 10^3/uL (4.0-10.0)
[2019-09-20 13:56] LABS: ALBUMIN 3.4 GM/DL (3.2-5.2); BILIRUBIN,TOTAL 0.7 MG/DL (0.2-1.0); CALCIUM LEVEL 8.8 MG/DL (8.8-10.2); CREATININE FOR GFR 1.32 MG/DL (0.55-1.30); DIGOXIN LEVEL 0.6 NG/ML (0.5-2.0); FREE T4 1.36 NG/DL (0.76-1.46); GLOMERULAR FILTRATION RATE 40.6 (>32); POTASSIUM SERUM 3.3 MEQ/L (3.5-5.1); THYROID STIMULATING HORMONE 3.4 uIU/ML (0.358-3.740); TOTAL PROTEIN 7.5 GM/DL (6.4-8.2)
== END ==
LOC: M SFHCADAM 11:06
PROVIDERS: ATTEND Physician Assistant
DX: N18.3 Chronic kidney disease, stage 3 (moderate) (principal); I12.9 Hypertensive chronic kidney disease with stage 1 through stage 4 chronic kidney disease, or unspecified chronic kidney disease; I48.91 Unspecified atrial fibrillation; E03.9 Hypothyroidism, unspecified; Z79.01 Long term (current) use of anticoagulants

== ENCOUNTER 2019-12-05 14:07 | Emergency (ER) | payer MEDICARE, OTHER ==
[~2019-12-05] VITALS: Ht 162.6 cm; Wt 53.2 kg
[2019-12-05 14:57] LABS: BASO # 0.1 10^3/uL (0.0-0.2); BASO % 0.8 % (0.0-1.0); EOS # 0.2 10^3/uL (0.0-0.5); EOS % 2.7 % (0.0-3.0); HEMATOCRIT 42.3 % (36.0-47.0); HEMOGLOBIN 13.4 g/dl (12.0-15.5); LYMPH # 1.7 10^3/uL (1.5-5.0); MEAN CORPUSCULAR HEMOGLOBIN 29.7 pg (27.0-33.0); MEAN CORPUSCULAR HGB CONC 31.7 g/dl (32.0-36.5); MEAN CORPUSCULAR VOLUME 93.8 fl (80.0-96.0); MONO # 0.8 10^3/uL (0.0-0.8); MONO % 10.7 % (0.0-5.0); NEUTROPHILS % 63.5 % (36.0-66.0); PLATELET COUNT, AUTOMATED 191 10^3/uL (150-450); RED BLOOD COUNT 4.51 10^6/uL (4.00-5.40); WHITE BLOOD COUNT 7.8 10^3/uL (4.0-10.0)
[2019-12-05 15:09] LABS: INR 1.4; PROTHROMBIN TIME 16.9 SECONDS (11.8-14.0)
--- NOTE | 2019-12-05 15:28 | REP ---
CHEST, SINGLE VIEW: Single view of the chest is performed and compared to a prior study of 12/08/2016. There is mild cardiomegaly. There is mild interstitial fibrosis. Tiny calcified granuloma in the right upper lobe is stable. There is no acute infiltrate or pulmonary edema. There is calcification of the thoracic aorta. Mediastinal silhouette is unchanged. Multiple sternal wires and mediastinal clips are present. Left dual-lead pacemaker is again noted. IMPRESSION: Mild cardiomegaly and chronic changes. No acute infiltrate or pulmonary edema. Electronically Signed by Wander Orozco MD 12/06/2019 11:49 A
[2019-12-05 15:30] LABS: BLOOD UREA NITROGEN 19 MG/DL (7-18); CALCIUM LEVEL 8.8 MG/DL (8.8-10.2); CARBON DIOXIDE LEVEL 33 MEQ/L (21-32); CHLORIDE LEVEL 102 MEQ/L (98-107); CK-MB VALUE MASS 5.1 NG/ML (<3.6); CPK CREATINE PHOSPHOKINASE 157 U/L (26-192); CREATININE FOR GFR 1.32 MG/DL (0.55-1.30); FREE T4 1.12 NG/DL (0.76-1.46); GLOMERULAR FILTRATION RATE 40.5 (>32); GLUCOSE, FASTING 108 MG/DL (70-100); MAGNESIUM LEVEL 2.8 MG/DL (1.8-2.4); MB/CK RELATIVE INDEX 3.25 (< OR =4); POTASSIUM SERUM 3.8 MEQ/L (3.5-5.1); SODIUM LEVEL 140 MEQ/L (136-145); TROPONIN I < 0.02 NG/ML (< 0.10)
[2019-12-05 15:52] VITALS: BP 171/80
--- NOTE | 2019-12-06 21:24 | ECGEPIP ---
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
== END 2019-12-05 16:05 | disposition home or self-care (01) ==
LOC: M ED 14:07
DX: R42 Dizziness and giddiness (principal); E78.5 Hyperlipidemia, unspecified; I48.91 Unspecified atrial fibrillation; I11.9 Hypertensive heart disease without heart failure; N18.3 Chronic kidney disease, stage 3 (moderate); Z79.01 Long term (current) use of anticoagulants; Z79.899 Other long term (current) drug therapy; Z87.891 Personal history of nicotine dependence; Z88.2 Allergy status to sulfonamides; Z95.0 Presence of cardiac pacemaker; Z95.1 Presence of aortocoronary bypass graft

== ENCOUNTER 2020-03-13 11:47 | Emergency (ER) | payer MEDICARE, OTHER ==
[~2020-03-13] VITALS: Ht 162.6 cm; Wt 58.1 kg
[~2020-03-13 11:47] MED LIST changes: +ALEN35TA54; +ALEN35TA54 PO; -ALEN35TA6; -ALEN35TA6 PO
[2020-03-13 12:35] LABS: HEMATOCRIT 40.2 % (36.0-47.0); HEMOGLOBIN 12.9 g/dl (12.0-15.5); MEAN CORPUSCULAR HEMOGLOBIN 31.2 pg (27.0-33.0); MEAN CORPUSCULAR HGB CONC 32.1 g/dl (32.0-36.5); MEAN CORPUSCULAR VOLUME 97.3 fl (80.0-96.0); PLATELET COUNT, AUTOMATED 174 10^3/uL (150-450); RED BLOOD COUNT 4.13 10^6/uL (4.00-5.40); WHITE BLOOD COUNT 8.9 10^3/uL (4.0-10.0)
[2020-03-13 12:59] LABS: CREATININE FOR GFR 1.14 MG/DL (0.55-1.30); POTASSIUM SERUM 3.4 MEQ/L (3.5-5.1)
[2020-03-13 13:10] LABS: INR 1.76; PROTHROMBIN TIME 20.9 SECONDS (11.8-14.0)
[2020-03-13 13:11] LABS: PARTIAL THROMBOPLASTIN TIME 34.9 SECONDS (25.0-38.4)
[2020-03-13 13:34] LABS: ALBUMIN 3.9 GM/DL (3.2-5.2); ALT/SGPT 36 U/L (12-78); BILIRUBIN,DIRECT 0.2 MG/DL (0.0-0.2); BILIRUBIN,TOTAL 0.4 MG/DL (0.2-1.0); CK-MB VALUE MASS 6.4 NG/ML (<3.6); CPK CREATINE PHOSPHOKINASE 190 U/L (26-192); DIGOXIN LEVEL 0.5 NG/ML (0.5-2.0); MB/CK RELATIVE INDEX 3.37 (< OR =4); TOTAL PROTEIN 7.9 GM/DL (6.4-8.2); TROPONIN I < 0.02 NG/ML (< 0.10)
[2020-03-13 16:00] VITALS: BP 168/77
[2020-03-13] MEDS ORDERED: CEPHALEXIN 500 MG CAP PO ONE (16:00)
[2020-03-13] MEDS ORDERED: KEFL500C17 PO (16:09)
--- NOTE | 2020-03-15 11:42 | ECGEPIP ---
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
== END 2020-03-13 17:06 | disposition home or self-care (01) ==
LOC: M ED 11:47 → EDBD 11:47 → M ED 17:06
DX: N39.0 Urinary tract infection, site not specified (principal); I25.2 Old myocardial infarction; I10 Essential (primary) hypertension; I48.91 Unspecified atrial fibrillation; E03.9 Hypothyroidism, unspecified; F03.90 Unspecified dementia, unspecified severity, without behavioral disturbance, psychotic disturbance, mood disturbance, and anxiety; Z95.0 Presence of cardiac pacemaker; Z88.2 Allergy status to sulfonamides; Z79.899 Other long term (current) drug therapy; Z79.01 Long term (current) use of anticoagulants

== ENCOUNTER → 2020-04-29 | Outpatient (REF) | payer MEDICARE, OTHER ==
[~2020-04-29] MED LIST changes: +KEFL500C17 PO
[2020-04-29 17:24] LABS: HEMATOCRIT 41.2 % (36.0-47.0); HEMOGLOBIN 12.5 g/dl (12.0-15.5); MEAN CORPUSCULAR HEMOGLOBIN 29.5 pg (27.0-33.0); MEAN CORPUSCULAR HGB CONC 30.3 g/dl (32.0-36.5); MEAN CORPUSCULAR VOLUME 97.2 fl (80.0-96.0); PLATELET COUNT, AUTOMATED 208 10^3/uL (150-450); RED BLOOD COUNT 4.24 10^6/uL (4.00-5.40); WHITE BLOOD COUNT 7.2 10^3/uL (4.0-10.0)
[2020-04-29 21:20] LABS: ALBUMIN 3.7 GM/DL (3.2-5.2); BILIRUBIN,TOTAL 0.6 MG/DL (0.2-1.0); CALCIUM LEVEL 9.1 MG/DL (8.8-10.2); CREATININE FOR GFR 1.34 MG/DL (0.55-1.30); DIGOXIN LEVEL 0.8 NG/ML (0.5-2.0); FOLATE 17.1 NG/ML; FREE T4 1.16 NG/DL (0.76-1.46); GLOMERULAR FILTRATION RATE 39.8 (>32); POTASSIUM SERUM 3.9 MEQ/L (3.5-5.1); THYROID STIMULATING HORMONE 3.45 uIU/ML (0.358-3.740); TOTAL PROTEIN 7.7 GM/DL (6.4-8.2)
== END ==
LOC: M SFHCADAM 11:56
PROVIDERS: ATTEND Physician Assistant
DX: I48.91 Unspecified atrial fibrillation (principal); E03.9 Hypothyroidism, unspecified; I12.9 Hypertensive chronic kidney disease with stage 1 through stage 4 chronic kidney disease, or unspecified chronic kidney disease; N18.31 Chronic kidney disease, stage 3a; F03.90 Unspecified dementia, unspecified severity, without behavioral disturbance, psychotic disturbance, mood disturbance, and anxiety

== ENCOUNTER 2020-05-01 11:30 | Inpatient (IN) | payer MEDICARE, OTHER ==
[~2020-05-01] VITALS: Ht 170.2 cm; Wt 54.7 kg
[2020-05-01 11:52] LABS: ABG BASE EXCESS 1.1 (-2.0-2.0); ABG HCO3 25.4 MEQ/L (22.0-26.0); ABG O2 SATURATION 96.7 % (95.0-99.0); ABG PARTIAL PRESSURE CO2 39.4 mmHg (35.0-45.0); ABG PARTIAL PRESSURE O2 83.3 mmHg (75.0-100.0); ABG STANDARD HCO3 25.5 MEQ/L (22.0-26.0); ABG TOTAL CO2 26.7 MEQ/L (23.0-31.0); ABG pH (ARTERIAL) 7.428 UNITS (7.350-7.450)
[2020-05-01 11:55] LABS: BASO # 0.1 10^3/uL (0.0-0.2); BASO % 0.7 % (0.0-1.0); EOS # 0.2 10^3/uL (0.0-0.5); EOS % 2.1 % (0.0-3.0); HEMOGLOBIN 12.3 g/dl (12.0-15.5); LYMPH # 1.4 10^3/uL (1.5-5.0); MEAN CORPUSCULAR HEMOGLOBIN 29.7 pg (27.0-33.0); MEAN CORPUSCULAR HGB CONC 30.8 g/dl (32.0-36.5); MEAN CORPUSCULAR VOLUME 96.6 fl (80.0-96.0); MONO # 0.7 10^3/uL (0.0-0.8); MONO % 9.1 % (0.0-5.0); NEUTROPHILS % 68.8 % (36.0-66.0); PLATELET COUNT, AUTOMATED 182 10^3/uL (150-450); RED BLOOD COUNT 4.14 10^6/uL (4.00-5.40); WHITE BLOOD COUNT 7.3 10^3/uL (4.0-10.0)
--- NOTE | 2020-05-01 12:06 | REP ---
INDICATION: altered. COMPARISON: 04/22/2017, 12/08/2016 TECHNIQUE: Non-contrast CT with coronal soft tissue reconstructions. FINDINGS: Lateral ventricles are midline symmetric dilated and upper portion of the moderately severe diffuse atrophy. Appearance is grossly unchanged from the previous study. Atrophy is greatest in the temporal and frontal lobes but is present throughout. Heterogeneous low-attenuation white matter changes throughout the periventricular, deep central and subcortical white matter representing chronic small-vessel white matter ischemic disease. I see no mass, intra or extra-axial hemorrhage, vascular territory infarct or edema. Basal cisterns are intact. The cerebellum shows atrophy and chronic changes but no acute infarct, hemorrhage or mass the posterior fossa. Skull base bone windows show mastoids and visualized sinuses clear. There is no fracture of the skull base or calvarium. 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 IMPRESSION: 1. Moderately severe diffuse atrophy with proportionate ventriculomegaly. Extensive chronic small vessel white matter ischemic changes of aging. Findings similar to the previous studies. 2. No intracranial hemorrhage, acute infarct, mass or mass effect. 3. Vascular calcifications in the carotid siphons. 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 <Electronically signed by Onofre Max > 05/01/20 [id number]
--- NOTE | 2020-05-01 12:11 | REP ---
INDICATION: Altered Mental Status. COMPARISON: 12/05/2019, 12/08/2016 TECHNIQUE: AP portable chest FINDINGS: Sternotomy wires and mediastinal clips are unchanged. There is a dual lead pacer over the left upper chest with leads in the right atrium and right ventricle. There is cardiomegaly with left atrial and left ventricular enlargement. Vascular redistribution and pulmonary edema are noted. There are diffuse interstitial and alveolar infiltrates in the bases and along the right greater than left perihilar region. Small effusion suspected on the left, slightly larger on the right. Degenerative changes are seen in the spine IMPRESSION: 1. Cardiomegaly with left atrial and ventricular enlargement and vascular redistribution with both alveolar and interstitial pulmonary edema. Concurrent pneumonitis difficult to exclude radiographically. Small effusions, right greater than left. 2. Dual lead pacer and previous sternotomy with multiple mediastinal clips. <Electronically signed by Onofre Max > 05/01/20 [id number]
[2020-05-01 12:39] LABS: ALBUMIN 3.4 GM/DL (3.2-5.2); BILIRUBIN,DIRECT 0.2 MG/DL (0.0-0.2); BILIRUBIN,TOTAL 0.5 MG/DL (0.2-1.0); THYROID STIMULATING HORMONE 1.8 uIU/ML (0.358-3.740)
[2020-05-01] MEDS ORDERED: LABETALOL 100MG/20ML VIAL IV STA (13:09)
--- NOTE | 2020-05-01 13:21 | REP ---
INDICATION: pain. COMPARISON: CT 03/12/2016 TECHNIQUE: Standard CT cervical spine trauma protocol with coronal and sagittal reconstructions FINDINGS: Degenerative changes with narrowing of the C1-2 interspace on the sagittal reconstructions with spurring slight exaggerated cervical lordosis in the upper cervical spine but no subluxation or dislocation. Craniocervical junction aligns normally. There is no fracture. Spondylosis with anterior osteophytes at C4-5 and C5-6. No compression deformities. Some mild hypertrophic facet changes present. Uncinate spurring at C5-6 on the left with some mild encroachment of the foramen. The other foramina are adequate. Spinous processes, lamina, pedicles, transverse processes and vertebral artery foramina were unremarkable. Visualized portions of the skull base and maxilla included were unremarkable. There is a small amount of mucosal thickening in the right maxillary sinus floor. Some bilateral apical pleural scarring evident. Apical pleural fluid posteriorly on the right representing effusion. IMPRESSION: Some mild degenerative changes without fracture, avulsion or malalignment in the cervical spine. Uncinate spurring on the left at C5-6 with mild foraminal encroachment. No significant or acute bony finding. Right pleural effusion seen at the apex and bilateral apical pleural scarring present. <Electronically signed by Onofre Max > 05/01/20 [id number]
--- NOTE | 2020-05-01 13:48 | REP ---
INDICATION: sob. COMPARISON: Portable chest 05/01/2020, 12/05/2019 TECHNIQUE: Noncontrast chest CT protocol with coronal and sagittal reconstructions. FINDINGS: Dual lead pacer over the left upper chest with lead tips in the right atrium and right ventricle. Sternotomy wires noted. There are bilateral pleural effusions moderate on the right smaller on the left. Adjacent to these are areas of confluent or compressive atelectasis versus a pneumonic infiltrates. More anterior aspect of the lung smith were clear there are few small scattered nodules peripherally in the bilateral lower lobes there is scarring peripherally in the left upper lobe, bilateral apical pleuroparenchymal scarring (mild) and calcified granuloma in the right upper lobe. Some cylindrical bronchiectatic changes are seen. The heart is enlarged with left atrial and ventricular enlargement. I do not see significant interstitial changes. Calcified aorta without aneurysm. Heavily calcified mitral annulus and calcifications at the aortic root and throughout the aorta. No pathologic sized mediastinal or hilar adenopathy. No axillary or supraclavicular mass. No hiatal hernia. Upper abdominal organs show atrophy of the left kidney and compensatory hypertrophy of the right. That portion of liver included was unremarkable. Spleen was without acute finding. Gallbladder seen in part is intact without calcified stone. The portion of the pancreas included also unremarkable. Bone windows show the sternum, manubrium, vertebral bodies and posterior elements without acute finding. Sternotomy wires are intact. Mediastinal clips again seen. Portions of clavicles, scapulae, humeral heads and ribs seen were unremarkable. IMPRESSION: 1. Bilateral pleural effusions, moderate on the right extending up to the apex, smaller on the left but also extending upward to above the aortic arch. There is compressive atelectasis or consolidative infiltrate adjacent to the pleural effusion on both sides. That layering effusion and infiltrates cause the appearance on radiograph. I cannot see interstitial edema in the lung smith. There are few scattered small noncalcified nodules peripherally in the lower lobes and a calcified granuloma in the right upper lobe. 2. Dual lead pacer, prior sternotomy, cardiomegaly with left atrial and ventricular enlargement are noted. Aortic with calcifications but no aneurysm. Degenerative changes but no acute bony findings. <Electronically signed by Onofre Max > 05/01/20 [id number]
[2020-05-01 13:56] LABS: INR 2.43
[2020-05-01 14:01] LABS: CALCIUM LEVEL 8.9 MG/DL (8.8-10.2); CREATININE FOR GFR 1.18 MG/DL (0.55-1.30); DIGOXIN LEVEL 0.7 NG/ML (0.5-2.0); GLOMERULAR FILTRATION RATE 46.1 (>32); POTASSIUM SERUM 3.6 MEQ/L (3.5-5.1)
[2020-05-01 14:01] LABS: AMPHETAMINES LEVEL URINE NEGATIVE (NEGATIVE); BARBITURATES URINE NEGATIVE (NEGATIVE); BENZODIAZEPINES URINE NEGATIVE (NEGATIVE); CANNABINOIDS URINE NEGATIVE (NEGATIVE); COCAINE METABOLITE URINE NEGATIVE (NEGATIVE); METHADONE URINE NEGATIVE (NEGATIVE); OPIATES URINE NEGATIVE (NEGATIVE); PHENCYCLIDINE URINE NEGATIVE (NEGATIVE)
[2020-05-01] MEDS ORDERED: ACETAMINOPHEN TAB 650MG DOSE (2X325MG) PO PRN (14:15)
[2020-05-01] MEDS ORDERED: LEVO75TA4 PO (14:29)
[2020-05-01] MEDS ORDERED: DIGO0.123 PO (14:29)
[2020-05-01] MEDS ORDERED: AMLO1TAB24 PO (14:29)
[2020-05-01] MEDS ORDERED: WARF-23 PO (14:34)
[2020-05-01] MEDS ORDERED: WARF4TAB52 PO (14:34)
--- NOTE | 2020-05-01 15:14 | HPEPDOC ---
[facility] Medical History & Physical Date of Admission May 01, 2020 Date of Service: May 01, 2020 Attending Physician: Christin Locke MD History and Physical CHIEF COMPLAINT: Loss of consciousness HISTORY OF PRESENT ILLNESS: Patient is an 89-year-old female with past medical history of coronary artery disease status post PR 2, hypertension, chronic atrial fibrillation, hypothyroidism, hypokalemia, history of recurrent urinary tract infection who presented to [facility] after having been found unconscious by her daughter at home. According to accounts her daughter found her mother unresp onsive in the next room over. Her daughter has been coming over to check on her periodically as her mom's vision has been worsening and her home health aide has not been available for the past 2 weeks to help. When she checked her mom's pulse she stated that she didn't feel one. She called 911. EMS responded and found the patient to have a systolic blood pressure of 200 mmHg, she withdrew to pain but her eyes were shot and she couldn't verbalize or follow commands. She was taken to the emergency room for further evaluation. The emergency room CT of the head, neck were negative. She had a ventricular paced rhythm on ECG. Labs were unremarkable. She had no neurological deficits on exam. After a smoker to time the patient was awake alert and oriented 3. She had not remember the events of earlier completely but states that when she woke up she was in her house with EMS present. She does not recall any chest pain, shortness of breath, palpitations, lightheadedness, dizziness, recent falls, recent medication changes, fevers, chills, recent illnesses, decreased appetite, blurry vision, extremity weakness prior to her unconscious event. She also denies any bowel or bladder loss when she woke up or tongue biting. There was no noted seizure activity by EMS or her daughter. In the emergency room blood pressure was found to be 170 systolic. The patient states her blood pressure is always high like this and she is on multiple medications at home which she states to be compliant with. She has been having a difficult time living on her own due to decreased eyesight and not having a home health aide available. The patient was ultimately admitted for syncope, hypertensive emergency. REVIEW OF SYSTEMS: CONSTITUTIONAL: Denies unexplained weight gain or weight loss, loss of appetite, fever, night sweats EYES: Denies eye drainage, eye pain, dry/irritated eye EARS, NOSE, MOUTH, THROAT: Denies difficulty hearing, ringing in ears, mouth sores, loose teeth, sore throat, facial numbness or pain NECK: Denies swollen glands CARDIOVASCULAR: Denies racing heart, chest pains, swelling of feet or legs, pain in legs with walking RESPIRATORY: Denies shortness of breath, night sweats, wheezing, sputum production, oxygen at home, coughing up blood, cough lasting > 1 month GASTROINTESTINAL: Denies abdominal pain, constipation, bloody stool, diarrhea, heartburn, nausea, vomiting GENITOURINARY: Denies painful urination, bloody urine, frequent urination, urgency, leaking urine, impotence MUSCULOSKELETAL: Denies joint pain, muscle pain, leg swelling INTEGUMENTARY: Denies rash, itching, new skin lesion, change in existing skin lesion, hair loss or increase, breast changes. NEUROLOGICAL: Denies headaches, numbness or tingling PSYCHIATRIC: Denies depression, anxiety, recurrent bad thoughts, mood swings, hallucinations PAST MEDICAL HISTORY: 1. Chronic atrial fibrillation on Coumadin 2. CAD status post PR 2 and ventricular pacemaker 3. Hypertension 4. Hypothyroidism 5. Hypokalemia 6. Hx of recurrent urinary tract infection 7. Cataracts PAST SURGICAL HISTORY: 1. Ventricular pacemaker placement 2. cataract surgery 3. CABG 4. hysterectomy FAMILY HISTORY: Father: Healthy, in 70's Mother: Healthy, at 70's SOCIAL HISTORY: Denies alcohol, drugs or smoking hx. Lives alone, home health aid quit 2 weeks ago and her daughter and POA has been helping her at home. PcP- Dr. Marvin's office, Does not know name of cardiology office. Uses a cane or walker to ambulate. ALLERGIES: Please see below. HOME MEDICATIONS: Please see below. PHYSICAL EXAMINATION: VS: Please see below. CONSTITUTIONAL: No acute distress, resting comfortably, AAO x 3 EYES: PERRLA, EOM intact HENT, MOUTH: Normocephalic, atraumatic, moist mucous membranes NECK: SUPPLE, no JVD, no lymphadenopathy, no carotid bruit CV: ventricularly paced rhythm, S1S2 normal, no murmurs/rubs/gallops RESPIRATORY: Clear to auscultation bilaterally, no rales/rhonchi/wheezes GI: BS positive in 4 quadrants, soft, nontender, nondistended, no rebound or guarding, no organomegaly : Deferred MUSCULOSKELETAL: Normal ROM. No cyanosis, clubbing, swelling, joint deformity, extremity edema INTEGUMENTARY: Intact, no rashes, no lesions, no erythema NEUROLOGIC: Cranial Nerves II-XII are intact, no focal deficits PSYCHIATRIC: Mood and affect are normal LABORATORY DATA: Please see below IMAGING: CT head: 1. Moderately severe diffuse atrophy with proportionate ventriculomegaly. Extensive chronic small vessel white matter ischemic changes of aging. Findings similar to the previous studies. 2. No intracranial hemorrhage, acute infarct, mass or mass effect. 3. Vascular calcifications in the carotid siphons. 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 CXR: 1. Cardiomegaly with left atrial and ventricular enlargement and vascular redistribution with both alveolar and interstitial pulmonary edema. Concurrent pneumonitis difficult to exclude radiographically. Small effusions, right greater than left. 2. Dual lead pacer and previous sternotomy with multiple mediastinal clips. CT chest: 1. Bilateral pleural effusions, moderate on the right extending up to the apex, smaller on the left but also extending upward to above the aortic arch. There is compressive atelectasis or consolidative infiltrate adjacent to the pleural effusion on both sides. That layering effusion and infiltrates cause the appearance on radiograph. I cannot see interstitial edema in the lung smith. There are few scattered small noncalcified nodules peripherally in the lower lobes and a calcified granuloma in the right upper lobe. 2. Dual lead pacer, prior sternotomy, cardiomegaly with left atrial and ventricular enlargement are noted. Aortic with calcifications but no aneurysm. Degenerative changes but no acute bony findings. CT cervical spine: Some mild degenerative changes without fracture, avulsion or malalignment in the cervical spine. Uncinate spurring on the left at C5-6 with mild foraminal encroachment. No significant or acute bony finding. Right pleural effusion seen at the apex and bilateral apical pleural scarring present. ASSESSMENT: 89-year-old female with past medical history of coronary artery disease status post PR 2, hypertension, chronic atrial fibrillation, hypothyroidism, hypokalemia, history of recurrent urinary tract infection admitted for syncope r/o cardiac vs. neuro cause, hypertensive emergency. PLAN: 1. Syncope, r/o cardiac vs. neuro cause. In presence of uncontrolled BP as well -Unresponsive for some time, no post-ictal phase, CT head and neuro exam neg -ECG: ventricular paced -F/u echocardiogram, carotid doppler, tele monitor, troponins, BP control with home meds and PRN meds. -Neuro checks Q4 hrs, orthostatics BID 2. Hypertensive emergency with loss of consciousness -Systolic in field >200 mmHg, ER 150-170's systolic -States that her BP can go up high like this at times, difficult to control. -Monitor closely on tele. -Resume all home medications. Can add hydralazine PRN 3. Chronic atrial fibrillation, dual lead PM -INR therapeutic on coumadin. -C/w BB, digoxin, warfarin at home dosing 4. CAD s/p PR x 2 -Denies chest pain, n/v, shortness of breath -ECG: ventricularly paced. -Trop x1 ng, f/u trops -Monitor on tele -C/w home cardiac medications 5. Hypokalemia, chronic and likely 2/2 to lasix use -C/w potassium supplement 6. Hx of recurrent UTI -UA +, UCx pending -Home keflex TID -F/u UCx -Ceftriaxone IV daily 7. Bilateral pleural effusions -Saturating well on RA -Identified on imaging above -C/w home lasix. 8. HLD -C/w statin 9. Hypothyroidism -C/w home levothyroxine 10. DVT px -C/w warfarin home dose DISPOSITION: PT/OT ordered. Per patient, her vision has been worsening. We will need to touch base with daughter to see if patient's needs are being met at home, she is POA. She is a DNR/DNI, need to fill out MOLST with patient. Vital Signs Vital Signs Date Time Temp Pulse Resp B/P (MAP) Pulse Ox O2 Delivery O2 Flow Rate FiO2 05/01/20 13:46 68 200/81 05/01/20 12:04 97.6 05/01/20 11:44 95 Room Air Laboratory Data Labs 24H Laboratory Tests 2 05/01/20 11:38: Immature Granulocyte % (Auto) 0.3, Neutrophils (%) (Auto) 68.8H, Lymphocytes (%) (Auto) 19.0L, Monocytes (%) (Auto) 9.1H, Eosinophils (%) (Auto) 2.1, Basophils (%) (Auto) 0.7, Neutrophils # (Auto) 5.0, Lymphocytes # (Auto) 1.4L, Monocytes # (Auto) 0.7, Eosinophils # (Auto) 0.2, Basophils # (Auto) 0.1, Nucleated Red Blood Cells % (auto) 0.0, Anion Gap 7L, Glomerular Filtration Rate 46.1, Osmolality 297, Lactic Acid Level 0.9, Calcium Level 8.9, Total Bilirubin 0.5, Direct Bilirubin 0.2, Aspartate Amino Transf (AST/SGOT) 32, Alanine Aminotransferase (ALT/SGPT) 32, Alkaline Phosphatase 122H, Ammonia < 10, Total Protein 7.0, Albumin 3.4, Albumin/Globulin Ratio 0.9L, Thyroid Stimulating Hormone (TSH) 1.800, Digoxin Level 0.7 05/01/20 11:40: Prothrombin Time 27.0H, Prothromb Time International Ratio 2.43, Blood Gas Bicarbonate Standard 25.5, Arterial Blood pH 7.428, Arterial Blood Partial Pressure CO2 39.4, Arterial Blood Partial Pressure O2 83.3, Arterial Blood Total CO2 26.7, Arterial Blood HCO3 25.4, Arterial Blood Base Excess 1.1, Arterial Blood Oxygen Saturation 96.7, Carboxyhemoglobin 2.1H 05/01/20 11:58: POC Glucose (Misc Panel) 106H, POC Sodium (Misc Panel) 142, POC Potassium (Misc Panel) 3.6, POC Chloride (Misc Panel) 105, POC Total CO2 (Misc Panel) 28.0H, POC Blood Urea Nitrogen (Misc Panel 23, POC Ionized Calcium (Misc Panel) 4.6, POC Creatinine (Misc Panel) 1.3, POC Hematocrit (Misc Panel) 39.0 05/01/20 11:59: POC Troponin I (Misc) 0.01 05/01/20 13:16: Urine Opiates Screen NEGATIVE, Urine Methadone Screen NEGATIVE, Urine Barbiturates Screen NEGATIVE, Urine Phencyclidine Screen NEGATIVE, Urine Amphetamines Screen NEGATIVE, Urine Benzodiazepines Screen NEGATIVE, Urine Cocaine Metabolite Screen NEGATIVE, Urine Cannabinoids Screen NEGATIVE 05/01/20 13:17: Urine Color YELLOW, Urine Appearance CLEAR, Urine pH 7.0, Urine Specific [place] 1.009, Urine Protein NEGATIVE, Urine Glucose (UA) NEGATIVE, Urine Ketones NEGAT ABRAHAM, Urine Blood NEGATIVE, Urine Nitrite NEGATIVE, Urine Bilirubin NEGATIVE, Urine Urobilinogen 0.2, Urine Leukocyte Esterase 2+H, Urine WBC (Auto) 6H, Urine RBC (Auto) 9H, Urine Hyaline Casts (Auto) 0, Urine Bacteria (Auto) 1+H, Urine Squamous Epithelial Cells 3, Urine Sperm (Auto) CBC/BMP Laboratory Tests 05/01/20 11:38 Microbiology Microbiology 05/01/20 Urine Culture, Received Pending Home Medications Scheduled Amlodipine Besylate (Amlodipine Besylate) 5 Mg Tablet, 5 MG PO BID Atorvastatin Calcium (Atorvastatin Calcium) 20 Mg Tab, 20 MG PO QHS Bisoprolol Fumarate (Bisoprolol Fumarate) 10 Mg Tab, 10 MG PO BID Digoxin (Digoxin) 125 Mcg Tablet, 125 MCG PO 3XW MON, WED, FRI Furosemide (Furosemide) 40 Mg Tab, 40 MG PO BID TAKES AM AND NOON Ketotifen Fumarate (Zaditor) 0.025 % Avery, 1 DROP OU QHS Levothyroxine Sodium (Levothyroxine Sodium) 75 Mcg Tablet, 75 MCG PO DAILY Potassium Chloride (Klor-Con M10) 10 Meq Tabcr, 10 MEQ PO DAILY Propylene Glycol/Peg 400 (Systane 0.3-0.4% Eye Drops) 15 Ml Debbie, 2 DROP OU DAILY Warfarin Sodium (Warfarin Sodium) 5 Mg Tablet, 5 MG PO QPM Warfarin Sodium (Warfarin Sodium) 1 Mg Tablet, 2 MG PO 5XW 7MG TOTAL ON TUE, , TUE, , SAT Allergies Coded Allergies: Sulfa (Sulfonamide Antibiotics) (Verified Adverse Reaction, Intermediate, eyes red and swollen, 03/13/20) A-FIB/CHADSVASC A-FIB History Current/History of A-Fib/PAF?: Yes Current PO Anticoag Therapy: Yes Age/Risk Factor Scoring CHADSVASC: CHADSVASC Response (Comments) Value Age Risk Factor Age >/= 75 years old 2 Gender Risk Factor Female 1 Hx of CHF No 0 Hx of HTN Yes 1 Hx of Stroke/TIA/or VTE No 0 Hx of Diabetes No 0 Hx of Vascular Disease No 0 Total 4 Treatment Treatment ordered: Christin Alberto MD May 01, 2020 15:14
--- NOTE | 2020-05-01 15:18 | REP ---
INDICATION: syncope COMPARISON: None. TECHNIQUE: Real-time ultrasound evaluation and duplex Doppler interrogation of the extracranial carotid vasculature is performed. FINDINGS: Reversed flow is observed in the left vertebral artery, question subclavian stenosis. Flow could not be observed in the right vertebral artery, possible occlusion.. Right carotid: The right common carotid artery shows diffuse intimal thickening but is otherwise unremarkable. There ismild mixed plaquing in the right carotid bulb and proximal ICA on two-dimensional scanning. Color flow and spectral Doppler interrogation are unremarkable on the right. Velocity chart right carotid: Right CCA PSV: 91 cm/S Right ICA PSV: 140 cm/S Right ICA EDV: 19 cm/S Right ECA PSV: 252 cm/S Right ICA/CCA ratio: 1.5 Left carotid: The left common carotid artery shows diffuse intimal thickening but is otherwise unremarkable. There is mild mixed plaquing in the left carotid bulb and proximal ICA on two-dimensional scanning. Color flow and spectral Doppler interrogation are unremarkable on the left. Velocity chart left carotid: Left CCA PSV: 101 cm/S Left ICA PSV: 90 cm/S Left ICA EDV: 19 cm/S Left ECA PSV: 155 cm/S Left ICA/CCA ratio: 0.9 IMPRESSION: Less than 50% category narrowing in the right internal carotid artery by Doppler velocity criteria. Stenotic flow velocities are observed in the external carotid artery on the right. No vertebral artery flow could be detected on the right. Question occlusion. Less than 50% category narrowing in the left ICA by Doppler velocity criteria. Mildly increased peak systolic flow velocities are observed in the external carotid artery on the left. Reversed flow is observed in the left vertebral artery raising suspicion of subclavian artery stenosis or occlusion, subclavian steal phenomena. <Electronically signed by Mauricio Amaya > 05/01/20 [id number]
[2020-05-01 15:42] VITALS: BP_SYST 110; BP_SYST 118; BP_SYST 130; BP_DIAS 60; BP_DIAS 70
[2020-05-01 15:47] VITALS: BP 130/60
[2020-05-01] MEDS: WARFARIN SOD 5MG TAB PO SCH (16:59)
[2020-05-01] MEDS: FUROSEMIDE 40 MG TAB PO SCH (16:59)
[2020-05-01] MEDS: cefTRIAXone SOD 1 GM in D5W MINI-BAG PLUS 50 ML IV SCH (17:00)
[2020-05-01] MEDS ORDERED: SLF 3 ML SYR IV PRN (17:15)
[2020-05-01 19:17] VITALS: BP 124/59
[2020-05-01] MEDS: ATORVASTATIN 20 MG TAB PO SCH (22:12)
[2020-05-01] MEDS: SLF 3 ML SYR IV SCH (22:13)
[2020-05-01] MEDS: amLODIPine 5 MG TAB PO SCH (22:13)
[2020-05-01] MEDS: bisoproloL fumarate 10 MG TAB PO SCH (22:16)
[2020-05-02] VITALS (10 sets, daily range): BP systolic 110–183; BP diastolic 62–83
[2020-05-02 05:32] LABS: HEMATOCRIT 37.4 % (36.0-47.0); HEMOGLOBIN 11.7 g/dl (12.0-15.5); MEAN CORPUSCULAR HEMOGLOBIN 30.5 pg (27.0-33.0); MEAN CORPUSCULAR HGB CONC 31.3 g/dl (32.0-36.5); MEAN CORPUSCULAR VOLUME 97.7 fl (80.0-96.0); PLATELET COUNT, AUTOMATED 162 10^3/uL (150-450); RED BLOOD COUNT 3.83 10^6/uL (4.00-5.40); WHITE BLOOD COUNT 7.3 10^3/uL (4.0-10.0)
[2020-05-02 06:01] LABS: ALBUMIN 2.9 GM/DL (3.2-5.2); BILIRUBIN,TOTAL 0.4 MG/DL (0.2-1.0); CALCIUM LEVEL 8.3 MG/DL (8.8-10.2); CREATININE FOR GFR 1.15 MG/DL (0.55-1.30); GLOMERULAR FILTRATION RATE 47.5 (>32); POTASSIUM SERUM 3.6 MEQ/L (3.5-5.1); TOTAL PROTEIN 6.2 GM/DL (6.4-8.2)
[2020-05-02] MEDS: SLF 3 ML SYR IV SCH ×3 (06:32→22:58)
[2020-05-02] MEDS: LEVOTHYROXINE 75MCG TABLET (0.075MG) PO SCH (06:32)
[2020-05-02] MEDS ORDERED: ENOXAPARIN 40MG/0.4ML SYRINGE (J1650 PER 10MG) SC SCH (09:00)
--- NOTE | 2020-05-02 09:05 | ECGEPIP ---
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
[2020-05-02] MEDS: POTASSIUM CHLORIDE 10 MEQ SR TABLET PO SCH (09:43)
[2020-05-02] MEDS: POLYVINYL ALCOHOL OPHTH SOLN 15 ML(LIQUITEARS) OU SCH (09:43)
[2020-05-02] MEDS: amLODIPine 5 MG TAB PO SCH ×2 (09:44→20:51)
[2020-05-02] MEDS: FUROSEMIDE 40 MG TAB PO SCH ×2 (09:44→16:27)
[2020-05-02] MEDS: bisoproloL fumarate 10 MG TAB PO SCH ×2 (09:44→20:51)
[2020-05-02] MEDS: DIGOXIN 0.125 MG TAB PO SCH (09:44)
[2020-05-02] MEDS: WARFARIN SOD 5MG TAB PO SCH (16:27)
[2020-05-02] MEDS: cefTRIAXone SOD 1 GM in D5W MINI-BAG PLUS 50 ML IV SCH (16:28)
--- NOTE | 2020-05-02 17:27 | IPNPDOC ---
Date Seen The patient was seen on 05/02/20. Progress Note SUBJECTIVE: Orthostatic + today with nursing but neg with PT. Echo done, pending result. Doppler neg. Patient feels much improved and denies chest pain, shortness of breath, lightheadedness, n/v, fevers or chills. OBJECTIVE PHYSICAL EXAMINATION: VS: Please see below. CONSTITUTIONAL: No acute distress, resting comfortably, AAO x 3 EYES: PERRLA, EOM intact HENT, MOUTH: Normocephalic, atraumatic, moist mucous membranes NECK: SUPPLE, no JVD, no lymphadenopathy, no carotid bruit CV: ventricularly paced rhythm, S1S2 normal, no murmurs/rubs/gallops RESPIRATORY: Clear to auscultation bilaterally, no rales/rhonchi/wheezes GI: BS positive in 4 quadrants, soft, nontender, nondistended, no rebound or guarding, no organomegaly : Deferred MUSCULOSKELETAL: Normal ROM. No cyanosis, clubbing, swelling, joint deformity, extremity edema INTEGUMENTARY: Intact, no rashes, no lesions, no erythema NEUROLOGIC: Cranial Nerves II-XII are intact, no focal deficits PSYCHIATRIC: Mood and affect are normal LABORATORY DATA: Please see below IMAGING: Echocardiogram: Pending results Doppler carotids: Less than 50% category narrowing in the right internal carotid artery by Doppler velocity criteria. Stenotic flow velocities are observed in the external carotid artery on the right. No vertebral artery flow could be detected on the right. Question occlusion. Less than 50% category narrowing in the left ICA by Doppler velocity criteria. Mildly increased peak systolic flow velocities are observed in the external carotid artery on the left. Reversed flow is observed in the left vertebral artery raising suspicion of subclavian artery stenosis or occlusion, subclavian steal phenomena. CT head: 1. Moderately severe diffuse atrophy with proportionate ventriculomegaly. Extensive chronic small vessel white matter ischemic changes of aging. Findings similar to the previous studies. 2. No intracranial hemorrhage, acute infarct, mass or mass effect. 3. Vascular calcifications in the carotid siphons. 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 CXR: 1. Cardiomegaly with left atrial and ventricular enlargement and vascular redistribution with both alveolar and interstitial pulmonary edema. Concurrent pneumonitis difficult to exclude radiographically. Small effusions, right greater than left. 2. Dual lead pacer and previous sternotomy with multiple mediastinal clips. CT chest: 1. Bilateral pleural effusions, moderate on the right extending up to the apex, smaller on the left but also extending upward to above the aortic arch. There is compressive atelectasis or consolidative infiltrate adjacent to the pleural effusion on both sides. That layering effusion and infiltrates cause the appearance on radiograph. I cannot see interstitial edema in the lung smith. There are few scattered small noncalcified nodules peripherally in the lower lobes and a calcified granuloma in the right upper lobe. 2. Dual lead pacer, prior sternotomy, cardiomegaly with left atrial and ventricular enlargement are noted. Aortic with calcifications but no aneurysm. Degenerative changes but no acute bony findings. CT cervical spine: Some mild degenerative changes without fracture, avulsion or malalignment in the cervical spine. Uncinate spurring on the left at C5-6 with mild foraminal encroachment. No significant or acute bony finding. Right pleural effusion seen at the apex and bilateral apical pleural scarring present. ASSESSMENT: 89-year-old female with past medical history of coronary artery disease status post ND 2, hypertension, chronic atrial fibrillation, hypothyroidism, hypokalemia, history of recurrent urinary tract infection admitted for syncope r/o cardiac vs. neuro cause, hypertensive emergency. PLAN: #Syncope, r/o cardiac vs. orthostatic hypotension vs. uncontrolled HTN -No tele events overnight, orthostatic hypotension + this AM by nursing -Carotid doppler above: Could not r/o subclavian artery occulsion vs. subclavian steal syndrome; however, no arm claudication, vertigo, difference in pressure between arms. Will discuss with vascular in the AM -ECG: ventricular paced -F/u echocardiogram, tele monitor, troponins, BP control with home meds and PRN meds. -Orthostatics BID until tomorrow -PT: recommending rehab #HTN, resolved Hypertensive emergency with loss of consciousness -States that her BP can go up high, difficult to control. -Monitor closely on tele. -C/w all home medications. Can add hydralazine PRN #Unsteady gait likely multifactorial 2/2 to physical deconditioning, poor eyesit e. -Hx of recent falls with hitting head -PT: recommending rehab -Also made aware today that Adult Protective Services has concerns about patient's living situation. -PFS to touch base with her daughter to see what family can provide or not provide. -C/w PT/OT #Chronic atrial fibrillation, dual lead PM -INR therapeutic on coumadin. -C/w BB, digoxin, warfarin at home dosing #CAD s/p ND x 2 -Denies chest pain, n/v, shortness of breath -ECG: ventricularly paced. -Trops neg -Monitor on tele -C/w home cardiac medications #Hypokalemia, chronic and likely 2/2 to lasix use -C/w potassium supplement #Hx of recurrent UTI -UA + -UCx: NG -D/c ceftriaxone #Bilateral pleural effusions -Saturating well on RA -Identified on imaging above -C/w home lasix. # HLD -C/w statin # Hypothyroidism -C/w home levothyroxine #DVT px -C/w warfarin home dose DISPOSITION: PT: recommending rehab, unsafe to return to home currently. APS concerned about patient. PFS to reach out to daughter. VS, I&O, 24H, Fishbone Vital Signs/I&O Vital Signs Date Time Temp Pulse Resp B/P (MAP) Pulse Ox O2 Delivery O2 Flow Rate FiO2 05/02/20 16:00 98.5 66 18 162/68 (99) 95 Room Air I&O- Last 24 Hours up to 6 AM 05/02/20 06:00 Intake Total 350 ml Output Total 0 ml Balance 350 ml Laboratory Data 24H LABS Laboratory Tests 2 05/02/20 04:47: Nucleated Red Blood Cells % (auto) 0.0, Anion Gap 7L, Glomerular Filtration Rate 47.5, Calcium Level 8.3L, Total Bilirubin 0.4, Aspartate Amino Transf (AST/SGOT) 24, Alanine Aminotransferase (ALT/SGPT) 25, Alkaline Phosphatase 112, Total Protein 6.2L, Albumin 2.9L, Albumin/Globulin Ratio 0.9L CBC/BMP Laboratory Tests 05/02/20 04:47 Microbiology Microbiology 05/01/20 Urine Culture - Final, Complete Current Medications Current Medications Medications (Trade) Dose Ordered Sig/Yusra Route PRN Reason Start Time Stop Time Status Last Admin Dose Admin Acetaminophen (Tylenol Tab) 650 mg Q4H PRN PO PAIN OR FEVER 05/01/20 14:15 Amlodipine Besylate (Norvasc) 5 mg BID PO 05/01/20 21:00 11/6/20 09:44 Artificial Tears (Akwa Tears) 2 drop DAILY OU 05/02/20 09:00 05/02/20 09:43 Atorvastatin Calcium (Lipitor) 20 mg QHS PO 05/01/20 21:00 05/01/20 22:12 Bisoprolol Fumarate (Zebeta) 10 mg BID PO 05/01/20 21:00 05/02/20 09:44 Ceftriaxone Sodium 1 gm/ Dextrose 50 ml @ 100 mls/hr Q24H IV 05/01/20 16:00 05/02/20 16:28 Digoxin (Lanoxin) 0.125 mg MoWeFr@0900 PO 05/02/20 09:00 05/02/20 09:44 Enoxaparin Sodium (Lovenox) 40 mg DAILY SC 05/02/20 09:00 05/01/20 15:13 DC Furosemide (Lasix) 40 mg BID@0900,1700 PO 05/01/20 17:00 05/02/20 16:27 Home Med (Med Rec Complete!) ASDIRECTED XX 05/01/20 14:45 05/01/20 14:41 DC Labetalol HCl (Normodyne, Trandate) 10 mg STAT STAT IV 05/01/20 13:09 05/01/20 13:10 DC 05/01/20 13:46 Levothyroxine Sodium (Synthroid) 75 mcg DAILY@0600 PO 05/02/20 06:00 05/02/20 06:32 Potassium Chloride (Micro-K Extencaps) 10 meq DAILY PO 05/02/20 09:00 05/02/20 09:43 Sodium Chloride (Saline Lock Flush) 2 ml ASDIRECTED PRN IV SEE LABEL COMMENTS 05/01/20 17:15 Sodium Chloride (Saline Lock Flush) 2 ml SLF IV 05/01/20 22:00 05/02/20 16:28 Warfarin Sodium (Coumadin) 2 mg SuTuWeThSa@1700 PO 05/03/20 17:00 Warfarin Sodium (Coumadin) 5 mg QPM@1700 PO 05/01/20 17:00 05/02/20 16:27 Allergies Coded Allergies: Sulfa (Sulfonamide Antibiotics) (Verified Adverse Reaction, Intermediate, eyes red and swollen, 03/13/20) Christin Locke MD May 02, 2020 17:27
[2020-05-02] MEDS: ATORVASTATIN 20 MG TAB PO SCH (20:51)
[2020-05-03] VITALS (9 sets, daily range): BP systolic 108–176; BP diastolic 60–78
[2020-05-03] MEDS: LEVOTHYROXINE 75MCG TABLET (0.075MG) PO SCH (05:21)
[2020-05-03] MEDS: SLF 3 ML SYR IV SCH ×3 (05:29→22:00)
[2020-05-03 05:45] LABS: HEMATOCRIT 43.1 % (36.0-47.0); HEMOGLOBIN 13.4 g/dl (12.0-15.5); MEAN CORPUSCULAR HGB CONC 31.1 g/dl (32.0-36.5); MEAN CORPUSCULAR VOLUME 96.6 fl (80.0-96.0); PLATELET COUNT, AUTOMATED 193 10^3/uL (150-450); RED BLOOD COUNT 4.46 10^6/uL (4.00-5.40); WHITE BLOOD COUNT 10.2 10^3/uL (4.0-10.0)
[2020-05-03 05:56] LABS: INR 2.61; PROTHROMBIN TIME 28.5 SECONDS (12.5-14.3)
[2020-05-03 06:11] LABS: ALBUMIN 3.5 GM/DL (3.2-5.2); BILIRUBIN,TOTAL 0.5 MG/DL (0.2-1.0); CREATININE FOR GFR 1.29 MG/DL (0.55-1.30); GLOMERULAR FILTRATION RATE 41.6 (>32); POTASSIUM SERUM 3.3 MEQ/L (3.5-5.1); TOTAL PROTEIN 8.1 GM/DL (6.4-8.2)
[2020-05-03] MEDS: POTASSIUM CHLORIDE 10 MEQ SR TABLET PO SCH (08:13)
[2020-05-03] MEDS: bisoproloL fumarate 10 MG TAB PO SCH ×2 (08:14→20:40)
[2020-05-03] MEDS: POLYVINYL ALCOHOL OPHTH SOLN 15 ML(LIQUITEARS) OU SCH (08:15)
[2020-05-03] MEDS: FUROSEMIDE 40 MG TAB PO SCH ×2 (08:15→16:44)
[2020-05-03] MEDS: amLODIPine 5 MG TAB PO SCH ×2 (08:15→20:40)
[2020-05-03] MEDS ORDERED: POTASSIUM CHLORIDE 10 MEQ SR TABLET PO ONE (10:00)
[2020-05-03] MEDS: WARFARIN SOD 2MG TAB PO SCH (16:45)
[2020-05-03] MEDS: cefTRIAXone SOD 1 GM in D5W MINI-BAG PLUS 50 ML IV SCH (16:45)
[2020-05-03] MEDS: WARFARIN SOD 5MG TAB PO SCH (16:45)
[2020-05-03] MEDS: ATORVASTATIN 20 MG TAB PO SCH (20:40)
--- NOTE | 2020-05-03 20:59 | IPNPDOC ---
Date Seen The patient was seen on 05/03/20. Progress Note SUBJECTIVE: Orthostatic neg. Wandered out of unit and into parking lot today, needing 1:1 sitter. Was upset when discussing needing continued rehab and possible SNF. Echo done, pending result. Patient denies chest pain, shortness of breath, lightheadedness, n/v, fevers or chills. OBJECTIVE PHYSICAL EXAMINATION: VS: Please see below. CONSTITUTIONAL: No acute distress, resting comfortably, AAO x 2 EYES: PERRLA, EOM intact HENT, MOUTH: Normocephalic, atraumatic, moist mucous membranes NECK: SUPPLE, no JVD, no lymphadenopathy, no carotid bruit CV: ventricularly paced rhythm, S1S2 normal, no murmurs/rubs/gallops RESPIRATORY: Clear to auscultation bilaterally, no rales/rhonchi/wheezes GI: BS positive in 4 quadrants, soft, nontender, nondistended, no rebound or guarding, no organomegaly : Deferred MUSCULOSKELETAL: Normal ROM. No cyanosis, clubbing, swelling, joint deformity, extremity edema INTEGUMENTARY: Intact, no rashes, no lesions, no erythema NEUROLOGIC: Cranial Nerves II-XII are intact, no focal deficits PSYCHIATRIC: Mood and affect are normal LABORATORY DATA: Please see below IMAGING: Echocardiogram: Pending results Doppler carotids: Less than 50% category narrowing in the right internal carotid artery by Doppler velocity criteria. Stenotic flow velocities are observed in the external carotid artery on the right. No vertebral artery flow could be detected on the right. Question occlusion. Less than 50% category narrowing in the left ICA by Doppler velocity criteria. Mildly increased peak systolic flow velocities are observed in the external carotid artery on the left. Reversed flow is observed in the left vertebral artery raising suspicion of subclavian artery stenosis or occlusion, subclavian steal phenomena. CT head: 1. Moderately severe diffuse atrophy with proportionate ventriculomegaly. Extensive chronic small vessel white matter ischemic changes of aging. Findings similar to the previous studies. 2. No intracranial hemorrhage, acute infarct, mass or mass effect. 3. Vascular calcifications in the carotid siphons. 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 CXR: 1. Cardiomegaly with left atrial and ventricular enlargement and vascular redistribution with both alveolar and interstitial pulmonary edema. Concurrent pneumonitis difficult to exclude radiographically. Small effusions, right greater than left. 2. Dual lead pacer and previous sternotomy with multiple mediastinal clips. CT chest: 1. Bilateral pleural effusions, moderate on the right extending up to the apex, smaller on the left but also extending upward to above the aortic arch. There is compressive atelectasis or consolidative infiltrate adjacent to the pleural effusion on both sides. That layering effusion and infiltrates cause the appearance on radiograph. I cannot see interstitial edema in the lung smith. There are few scattered small noncalcified nodules peripherally in the lower lobes and a calcified granuloma in the right upper lobe. 2. Dual lead pacer, prior sternotomy, cardiomegaly with left atrial and ventricular enlargement are noted. Aortic with calcifications but no aneurysm. Degenerative changes but no acute bony findings. CT cervical spine: Some mild degenerative changes without fracture, avulsion or malalignment in the cervical spine. Uncinate spurring on the left at C5-6 with mild foraminal encroachment. No significant or acute bony finding. Right pleural effusion seen at the apex and bilateral apical pleural scarring present. ASSESSMENT: 89-year-old female with past medical history of coronary artery disease status post [place] 2, hypertension, chronic atrial fibrillation, hy pothyroidism, hypokalemia, history of recurrent urinary tract infection admitted for syncope r/o cardiac vs. neuro cause, hypertensive emergency. PLAN: #Syncope, r/o vasovagal vs. orthostatic hypotension vs. 2/2 uncontrolled HTN. Not looking cardiac in etiology at this time. -No tele events or syncopal overnight, change in BP today but not symptomatic. -Carotid doppler above: Could not r/o subclavian artery occulsion vs. subclavian steal syndrome; however, no arm claudication, vertigo. There was a difference in BP between arms. Will discuss with vascular in the AM to see if this of con cern. -ECG: ventricular paced -F/u echocardiogram, tele monitor, BP control with home meds and PRN meds. -PT: recommending rehab #HTN -Monitor closely on tele. -C/w all home medications. #Unsteady gait likely multifactorial 2/2 to physical deconditioning, poor eyesite. -Hx of recent falls with hitting head -PT: recommending rehab -Also made aware today that Adult Protective Services has concerns about patient's living situation. -PFS touched base with daughter , rehab and maybe later SNF likely needed. -C/w PT/OT #Chronic atrial fibrillation, dual lead PM -INR therapeutic on coumadin. -C/w BB, digoxin, warfarin at home dosing #CAD s/p NE x 2 -Denies chest pain, n/v, shortness of breath -ECG: ventricularly paced. -Trops neg -Monitor on tele -C/w home cardiac medications #Hypokalemia, chronic and likely 2/2 to lasix use -C/w potassium supplement #Hx of recurrent UTI -UA + -UCx: NG #Bilateral pleural effusions -Saturating well on RA -Identified on imaging above -C/w home lasix. # HLD -C/w statin # Hypothyroidism -C/w home levothyroxine #DVT px -C/w warfarin home dose DISPOSITION: PT: recommending rehab, unsafe to return to home currently. PFS has been in contact with daughter and she agrees to plan. VS, I&O, 24H, Zhaobone Vital Signs/I&O Vital Signs Date Time Temp Pulse Resp B/P (MAP) Pulse Ox O2 Delivery O2 Flow Rate FiO2 05/03/20 20:40 72 164/52 05/03/20 20:00 97.4 17 97 Room Air I&O- Last 24 Hours up to 6 AM 05/03/20 06:00 Intake Total 770 ml Output Total 0 ml Balance 770 ml Laboratory Data 24H LABS Laboratory Tests 2 05/03/20 05:30: Nucleated Red Blood Cells % (auto) 0.0, Prothrombin Time 28.5H, Prothromb Time International Ratio 2.61, Anion Gap 5L, Glomerular Filtration Rate 41.6, Calcium Level 9.0, Total Bilirubin 0.5, Aspartate Amino Transf (AST/SGOT) 28, Alanine Aminotransferase (ALT/SGPT) 30, Alkaline Phosphatase 130H, Total Protein 8.1#, Albumin 3.5#, Albumin/Globulin Ratio 0.8L CBC/BMP Laboratory Tests 05/03/20 05:30 Microbiology Microbiology 05/01/20 Urine Culture - Final, Complete Current Medications Current Medications Medications (Trade) Dose Ordered Sig/Yusra Route PRN Reason Start Time Stop Time Status Last Admin Dose Admin Acetaminophen (Tylenol Tab) 650 mg Q4H PRN PO PAIN OR FEVER 05/01/20 14:15 Amlodipine Besylate (Norvasc) 5 mg BID PO 05/01/20 21:00 05/03/20 20:40 Artificial Tears (Akwa Tears) 2 drop DAILY OU 05/02/20 09:00 05/02/20 09:43 Atorvastatin Calcium (Lipitor) 20 mg QHS PO 05/01/20 21:00 05/03/20 20:40 Bisoprolol Fumarate (Zebeta) 10 mg BID PO 05/01/20 21:00 05/03/20 20:40 Ceftriaxone Sodium 1 gm/ Dextrose 50 ml @ 100 mls/hr Q24H IV 05/01/20 16:00 05/03/20 16:45 Digoxin (Lanoxin) 0.125 mg MoWeFr@0900 PO 05/02/20 09:00 05/02/20 09:44 Enoxaparin Sodium (Lovenox) 40 mg DAILY SC 05/02/20 09:00 05/01/20 15:13 DC Furosemide (Lasix) 40 mg BID@0900,1700 PO 05/01/20 17:00 05/03/20 16:44 Home Med (Med Rec Complete!) ASDIRECTED XX 05/01/20 14:45 05/01/20 14:41 DC Labetalol HCl (Normodyne, Trandate) 10 mg STAT STAT IV 05/01/20 13:09 05/01/20 13:10 DC 05/01/20 13:46 Levothyroxine Sodium (Synthroid) 75 mcg DAILY@0600 PO 05/02/20 06:00 05/03/20 05:21 Potassium Chloride (Micro-K Extencaps) 10 meq DAILY PO 05/02/20 09:00 05/03/20 08:13 Sodium Chloride (Saline Lock Flush) 2 ml ASDIRECTED PRN IV SEE LABEL COMMENTS 05/01/20 17:15 Sodium Chloride (Saline Lock Flush) 2 ml SLF IV 05/01/20 22:00 05/03/20 05:29 Warfarin Sodium (Coumadin) 2 mg SuTuWeThSa@1700 PO 05/03/20 17:00 05/03/20 16:45 Warfarin Sodium (Coumadin) 5 mg QPM@1700 PO 05/01/20 17:00 05/03/20 16:45 Allergies Coded Allergies: Sulfa (Sulfonamide Antibiotics) (Verified Adverse Reaction, Intermediate, eyes red and swollen, 03/13/20) Christin Locke MD May 03, 2020 20:59
[2020-05-04] VITALS: BP 158/75
[2020-05-04 04:00] VITALS: BP 142/68
[2020-05-04] MEDS: SLF 3 ML SYR IV SCH ×3 (05:35→21:47)
[2020-05-04] MEDS: LEVOTHYROXINE 75MCG TABLET (0.075MG) PO SCH (05:35)
[2020-05-04 05:42] LABS: HEMATOCRIT 37.4 % (36.0-47.0); HEMOGLOBIN 11.8 g/dl (12.0-15.5); MEAN CORPUSCULAR HEMOGLOBIN 30.3 pg (27.0-33.0); MEAN CORPUSCULAR HGB CONC 31.6 g/dl (32.0-36.5); MEAN CORPUSCULAR VOLUME 96.1 fl (80.0-96.0); PLATELET COUNT, AUTOMATED 177 10^3/uL (150-450); RED BLOOD COUNT 3.89 10^6/uL (4.00-5.40)
[2020-05-04 06:08] LABS: BILIRUBIN,TOTAL 0.4 MG/DL (0.2-1.0); CALCIUM LEVEL 8.4 MG/DL (8.8-10.2); CREATININE FOR GFR 0.99 MG/DL (0.55-1.30); GLOMERULAR FILTRATION RATE 56.5 (>32); POTASSIUM SERUM 3.3 MEQ/L (3.5-5.1); TOTAL PROTEIN 6.8 GM/DL (6.4-8.2)
[2020-05-04] MEDS: POTASSIUM CHLORIDE 10% LIQ 20 MEQ/15 ML UDC PO SCH ×2 (06:37→08:23)
[2020-05-04 08:00] VITALS: BP 142/63
[2020-05-04] MEDS: FUROSEMIDE 40 MG TAB PO SCH ×2 (08:24→16:33)
[2020-05-04] MEDS: POLYVINYL ALCOHOL OPHTH SOLN 15 ML(LIQUITEARS) OU SCH (08:24)
[2020-05-04] MEDS: bisoproloL fumarate 10 MG TAB PO SCH ×2 (08:24→21:49)
[2020-05-04] MEDS: amLODIPine 5 MG TAB PO SCH ×2 (08:24→21:00)
--- NOTE | 2020-05-04 15:29 | IPNPDOC ---
Date Seen The patient was seen on 05/04/20. Progress Note SUBJECTIVE: Sitter in room, tends to wander but did well overnight and was well rested this AM. Patient denies chest pain, shortness of breath, lightheadedness, n/v, fevers or chills. OBJECTIVE: PHYSICAL EXAMINATION: VS: Please see below. CONSTITUTIONAL: No acute distress, resting comfortably, AAO x 2, at times pleasantly confused EYES: PERRLA, EOM intact HENT, MOUTH: Normocephalic, atraumatic, moist mucous membranes NECK: SUPPLE, no JVD, no lymphadenopathy, no carotid bruit CV: ventricularly paced rhythm, S1S2 normal, no murmurs/rubs/gallops RESPIRATORY: Clear to auscultation bilaterally, no rales/rhonchi/wheezes GI: BS positive in 4 quadrants, soft, nontender, nondistended, no rebound or guarding, no organomegaly : Deferred MUSCULOSKELETAL: Normal ROM. No cyanosis, clubbing, swelling, joint deformity, extremity edema INTEGUMENTARY: Intact, no rashes, no lesions, no erythema NEUROLOGIC: Cranial Nerves II-XII are intact, no focal deficits PSYCHIATRIC: Mood and affect are normal LABORATORY DATA: Please see below IMAGING: Echocardiogram: Done but results pending Doppler carotids: Less than 50% category narrowing in the right internal carotid artery by Doppler velocity criteria. Stenotic flow velocities are observed in the external carotid artery on the right. No vertebral artery flow could be detected on the right. Question occlusion. Less than 50% category narrowing in the left ICA by Doppler velocity criteria. Mildly increased peak systolic flow velocities are observed in the external carotid artery on the left. Reversed flow is observed in the left vertebral artery raising suspicion of subclavian artery stenosis or occlusion, subclavian steal phenomena. CT head: 1. Moderately severe diffuse atrophy with proportionate ventriculomegaly. Ext ensive chronic small vessel white matter ischemic changes of aging. Findings similar to the previous studies. 2. No intracranial hemorrhage, acute infarct, mass or mass effect. 3. Vascular calcifications in the carotid siphons. 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 CXR: 1. Cardiomegaly with left atrial and ventricular enlargement and vascular redistribution with both alveolar and interstitial pulmonary edema. Concurrent pneumonitis difficult to exclude radiographically. Small effusions, right greater than left. 2. Dual lead pacer and previous sternotomy with multiple mediastinal clips. CT chest: 1. Bilateral pleural effusions, moderate on the right extending up to the apex, smaller on the left but also extending upward to above the aortic arch. There is compressive atelectasis or consolidative infiltrate adjacent to the pleural effusion on both sides. That layering effusion and infiltrates cause the appearance on radiograph. I cannot see interstitial edema in the lung smith. There are few scattered small noncalcified nodules peripherally in the lower lobes and a calcified granuloma in the right upper lobe. 2. Dual lead pacer, prior sternotomy, cardiomegaly with left atrial and ventricular enlargement are noted. Aortic with calcifications but no aneurysm. Degenerative changes but no acute bony findings. CT cervical spine: Some mild degenerative changes without fracture, avulsion or malalignment in the cervical spine. Uncinate spurring on the left at C5-6 with mild foraminal encroachment. No significant or acute bony finding. Right pleural effusion seen at the apex and bilateral apical pleural scarring present. ASSESSMENT: 89-year-old female with past medical history of coronary artery disease status post [place] 2, hypertension, chronic atrial fibrillation, hypothyroidism, hypokalemia, history of recurrent urinary tract infection admitted for syncope r/o cardiac vs. neuro cause, hypertensive emergency. PLAN: #Syncope, r/o vasovagal vs. orthostatic hypotension vs. 2/2 uncontrolled HTN. Not looking cardiac in etiology at this time. -No tele events or syncopal overnight -Carotid doppler above: Could not r/o subclavian artery occulsion vs. subclavian steal syndrome -No arm claudication, vertigo. There was a difference in BP between arms. Will discuss with vascular to see if this of concern. -ECG: ventricular paced -F/u echocardiogram, tele monitor, BP control with home meds and PRN meds. -PT: recommending rehab #HTN -Monitor closely on tele. -C/w all home medications. #Unsteady gait likely multifactorial 2/2 to physical deconditioning, poor eyesite. -Hx of recent falls with hitting head -PT: recommending rehab -Also made aware today that Adult Protective Services has concerns about patien t's living situation. -PFS touched base with daughter , rehab and maybe later SNF likely needed. -C/w PT/OT #Chronic atrial fibrillation, dual lead PM -INR therapeutic on coumadin. -C/w BB, digoxin, warfarin at home dosing #CAD s/p [place] x 2 -Denies chest pain, n/v, shortness of breath -ECG: ventricularly paced. -Trops neg -Monitor on tele -C/w home cardiac medications #Hypokalemia, chronic and likely 2/2 to lasix use -C/w potassium supplement #Hx of recurrent UTI -UA + -UCx: NG #Bilateral pleural effusions -Saturating well on RA -Identified on imaging above -C/w home lasix. # HLD -C/w statin # Hypothyroidism -C/w home levothyroxine #DVT px -C/w warfarin home dose DISPOSITION: PT: recommending rehab, unsafe to return to home currently. PFS has been in contact with daughter and she agrees to plan. VS, I&O, 24H, Fishbone Vital Signs/I&O Vital Signs Date Time Temp Pulse Resp B/P (MAP) Pulse Ox O2 Delivery O2 Flow Rate FiO2 05/04/20 08:24 69 142/68 05/04/20 08:00 97.2 16 98 Room Air I&O- Last 24 Hours up to 6 AM 05/04/20 06:00 Intake Total 410 ml Output Total 25 ml Balance 385 ml Laboratory Data 24H LABS Laboratory Tests 2 05/04/20 05:24: Nucleated Red Blood Cells % (auto) 0.0, Anion Gap 6L, Glomerular Filtration Rate 56.5, Calcium Level 8.4L, Total Bilirubin 0.4, Aspartate Amino Transf (AST/SGOT) 21, Alanine Aminotransferase (ALT/SGPT) 23, Alkaline Phosphatase 101, Total Protein 6.8, Albumin 3.0L, Albumin/Globulin Ratio 0.8L CBC/BMP Laboratory Tests 05/04/20 05:24 Microbiology Microbiology 05/01/20 Urine Culture - Final, Complete Current Medications Current Medications Medications (Trade) Dose Ordered Sig/Yusra Route PRN Reason Start Time Stop Time Status Last Admin Dose Admin Acetaminophen (Tylenol Tab) 650 mg Q4H PRN PO PAIN OR FEVER 05/01/20 14:15 Amlodipine Besylate (Norvasc) 5 mg BID PO 05/01/20 21:00 05/04/20 08:24 Artificial Tears (Akwa Tears) 2 drop DAILY OU 05/02/20 09:00 05/04/20 08:24 Atorvastatin Calcium (Lipitor) 20 mg QHS PO 05/01/20 21:00 05/03/20 20:40 Bisoprolol Fumarate (Zebeta) 10 mg BID PO 05/01/20 21:00 05/04/20 08:24 Ceftriaxone Sodium 1 gm/ Dextrose 50 ml @ 100 mls/hr Q24H IV 05/01/20 16:00 05/03/20 16:45 Digoxin (Lanoxin) 0.125 mg MoWeFr@0900 PO 05/02/20 09:00 05/02/20 09:44 Enoxaparin Sodium (Lovenox) 40 mg DAILY SC 05/02/20 09:00 05/01/20 15:13 DC Furosemide (Lasix) 40 mg BID@0900,1700 PO 05/01/20 17:00 05/04/20 08:24 Home Med (Med Rec Complete!) ASDIRECTED XX 05/01/20 14:45 05/01/20 14:41 DC Labetalol HCl (Normodyne, Trandate) 10 mg STAT STAT IV 05/01/20 13:09 05/01/20 13:10 DC 05/01/20 13:46 Levothyroxine Sodium (Synthroid) 75 mcg DAILY@0600 PO 05/02/20 06:00 05/04/20 05:35 Potassium Chloride (Micro-K Extencaps) 10 meq DAILY PO 05/02/20 09:00 05/04/20 08:00 DC 05/03/20 08:13 Potassium Chloride (Micro-K Extencaps) 30 meq DAILY PO 05/05/20 09:00 Potassium Chloride (Potassium Chloride Liquid) 20 meq Q2H PO 05/04/20 06:30 05/04/20 08:31 DC 05/04/20 08:23 Sodium Chloride (Saline Lock Flush) 2 ml ASDIRECTED PRN IV SEE LABEL COMMENTS 05/01/20 17:15 Sodium Chloride (Saline Lock Flush) 2 ml SLF IV 05/01/20 22:00 05/04/20 13:06 Warfarin Sodium (Coumadin) 2 mg SuTuWeThSa@1700 PO 05/03/20 17:00 05/03/20 16:45 Warfarin Sodium (Coumadin) 5 mg QPM@1700 PO 05/01/20 17:00 05/03/20 16:45 Allergies Coded Allergies: Sulfa (Sulfonamide Antibiotics) (Verified Adverse Reaction, Intermediate, eyes red and swollen, 03/13/20) Christin Locke MD May 04, 2020 15:29
[2020-05-04 16:00] VITALS: BP 160/78
[2020-05-04] MEDS: WARFARIN SOD 2MG TAB PO SCH (16:32)
[2020-05-04] MEDS: WARFARIN SOD 5MG TAB PO SCH (16:33)
[2020-05-04] MEDS: cefTRIAXone SOD 1 GM in D5W MINI-BAG PLUS 50 ML IV SCH (16:33)
[2020-05-04 20:00] VITALS: BP 119/55
[2020-05-04] MEDS: ATORVASTATIN 20 MG TAB PO SCH (21:49)
[2020-05-05] VITALS: BP 140/65
[2020-05-05 04:00] VITALS: BP 164/74
[2020-05-05 05:44] LABS: HEMATOCRIT 41.6 % (36.0-47.0); MEAN CORPUSCULAR HEMOGLOBIN 30.2 pg (27.0-33.0); MEAN CORPUSCULAR HGB CONC 31.3 g/dl (32.0-36.5); MEAN CORPUSCULAR VOLUME 96.5 fl (80.0-96.0); PLATELET COUNT, AUTOMATED 207 10^3/uL (150-450); RED BLOOD COUNT 4.31 10^6/uL (4.00-5.40); WHITE BLOOD COUNT 8.1 10^3/uL (4.0-10.0)
[2020-05-05] MEDS: SLF 3 ML SYR IV SCH ×3 (05:51→21:30)
[2020-05-05] MEDS: LEVOTHYROXINE 75MCG TABLET (0.075MG) PO SCH (05:51)
[2020-05-05 05:54] LABS: INR 2.65; PROTHROMBIN TIME 28.9 SECONDS (12.5-14.3)
[2020-05-05 06:35] LABS: CALCIUM LEVEL 8.7 MG/DL (8.8-10.2); CREATININE FOR GFR 1.1 MG/DL (0.55-1.30)
[2020-05-05 07:41] VITALS: BP 150/70
[2020-05-05] MEDS: POLYVINYL ALCOHOL OPHTH SOLN 15 ML(LIQUITEARS) OU SCH (08:32)
[2020-05-05] MEDS: amLODIPine 5 MG TAB PO SCH ×2 (08:33→21:30)
[2020-05-05] MEDS: DIGOXIN 0.125 MG TAB PO SCH (08:33)
[2020-05-05] MEDS: FUROSEMIDE 40 MG TAB PO SCH ×2 (08:33→16:22)
[2020-05-05] MEDS: POTASSIUM CHLORIDE 10 MEQ SR TABLET PO SCH (08:34)
[2020-05-05] MEDS: bisoproloL fumarate 10 MG TAB PO SCH ×2 (09:58→21:30)
--- NOTE | 2020-05-05 12:53 | IPNPDOC ---
Date Seen The patient was seen on 05/05/20. Progress Note SUBJECTIVE: Sitter in room, wanderer so may be difficult to place. Patient denies chest pain, shortness of breath, lightheadedness, n/v, fevers or chills. OBJECTIVE: PHYSICAL EXAMINATION: VS: Please see below. CONSTITUTIONAL: No acute distress, resting comfortably, AAO x 2, at times plea santly confused EYES: PERRLA, EOM intact HENT, MOUTH: Normocephalic, atraumatic, moist mucous membranes NECK: SUPPLE, no JVD, no lymphadenopathy, no carotid bruit CV: ventricularly paced rhythm, S1S2 normal, no murmurs/rubs/gallops RESPIRATORY: Clear to auscultation bilaterally, no rales/rhonchi/wheezes GI: BS positive in 4 quadrants, soft, nontender, nondistended, no rebound or guarding, no organomegaly : Deferred MUSCULOSKELETAL: Normal ROM. No cyanosis, clubbing, swelling, joint deformity, extremity edema INTEGUMENTARY: Intact, no rashes, no lesions, no erythema NEUROLOGIC: Cranial Nerves II-XII are intact, no focal deficits PSYCHIATRIC: Mood and affect are normal LABORATORY DATA: Please see below IMAGING: Echocardiogram: Done but results pending Doppler carotids: Less than 50% category narrowing in the right internal carotid artery by Doppler velocity criteria. Stenotic flow velocities are observed in the external carotid artery on the right. No vertebral artery flow could be detected on the right. Question occlusion. Less than 50% category narrowing in the left ICA by Doppler velocity criteria. Mildly increased peak systolic flow velocities are observed in the external carotid artery on the left. Reversed flow is observed in the left vertebral artery raising suspicion of subclavian artery stenosis or occlusion, subclavian steal phenomena. CT head: 1. Moderately severe diffuse atrophy with proportionate ventriculomegaly. Extensive chronic small vessel white matter ischemic changes of aging. Findings similar to the previous studies. 2. No intracranial hemorrhage, acute infarct, mass or mass effect. 3. Vascular calcifications in the carotid siphons. 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 CXR: 1. Cardiomegaly with left atrial and ventricular enlargement and vascular redistribution with both alveolar and interstitial pulmonary edema. Concurrent pneumonitis difficult to exclude radiographically. Small effusions, right greater than left. 2. Dual lead pacer and previous sternotomy with multiple mediastinal clips. CT chest: 1. Bilateral pleural effusions, moderate on the right extending up to the apex, smaller on the left but also extending upward to above the aortic arch. There is compressive atelectasis or consolidative infiltrate adjacent to the pleural effusion on both sides. That layering effusion and infiltrates cause the appearance on radiograph. I cannot see interstitial edema in the lung smith. There are few scattered small noncalcified nodules peripherally in the lower lobes and a calcified granuloma in the right upper lobe. 2. Dual lead pacer, prior sternotomy, cardiomegaly with left atrial and ventricular enlargement are noted. Aortic with calcifications but no aneurysm. Degenerative changes but no acute bony findings. CT cervical spine: Some mild degenerative changes without fracture, avulsion or malalignment in the cervical spine. Uncinate spurring on the left at C5-6 with mild foraminal encroachment. No significant or acute bony finding. Right pleural effusion seen at the apex and bilateral apical pleural scarring present. ASSESSMENT: 89-year-old female with past medical history of coronary artery disease status post MS 2, hypertension, chronic atrial fibrillation, hypothyroidism, hypokalemia, history of recurrent urinary tract infection admitted for syncope r/o cardiac vs. neuro cause, hypertensive emergency. PLAN: #Age related memory loss vs. dementia -Wanders and requiring sitter at bedside -Pleasantly confused currently -Her daughter has been helping with mother's medical care along with home health aid who recently quit -Previously living in senior housing but will likely need SNF -PFS in discussion with daughter about placement #Syncope, r/o vasovagal vs. orthostatic hypotension vs. 2/2 uncontrolled HTN. -No tele events or syncopal episodes since admission -Carotid doppler above: Could not r/o subclavian artery occulsion vs. subclavian steal syndrome but no arm claudication, difference in blood pressures between arms, vertigo. Low suspicion. Wanted to discuss with vascular surgery hotel front desk clerk but none for the next two days: Consider o/p f/u with them -ECG: ventricular paced -Echocardiogram: report pending -BP control with home meds and PRN meds. -PT: recommending rehab #HTN -Stable -Monitor closely on tele. -C/w all home medications. #Unsteady gait likely multifactorial 2/2 to physical deconditioning, poor eyesite. -Hx of recent falls with hitting head -PT: recommending rehab -Also made aware today that Adult Protective Services has concerns about patient's living situation. -PFS touched base with daughter , likely SNF -C/w PT/OT #Chronic atrial fibrillation, dual lead PM -INR therapeutic on coumadin. -C/w BB, digoxin, warfarin at home dosing #CAD s/p MS x 2 -Denies chest pain, n/v, shortness of breath -ECG: ventricularly paced. -Trops neg -Monitor on tele -C/w home cardiac medications #Hypokalemia, chronic and likely 2/2 to lasix use -C/w potassium supplement #Hx of recurrent UTI -UA + -UCx: NG #Bilateral pleural effusions -Saturating well on RA -Identified on imaging above -C/w home lasix. # HLD -C/w statin # Hypothyroidism -C/w home levothyroxine #DVT px -C/w warfarin home dose DISPOSITION: PT: unsafe to return to home currently. PFS has been in contact with daughter and she agrees to plan which is likely SNF. If remains stable, consider switching to [facility] status on 05/06/20 . VS, I&O, 24H, Fishbone Vital Signs/I&O Vital Signs Date Time Temp Pulse Resp B/P (MAP) Pulse Ox O2 Delivery O2 Flow Rate FiO2 05/05/20 09:58 70 150/70 05/05/20 07:41 97.8 18 100 Room Air I&O- Last 24 Hours up to 6 AM 05/05/20 06:00 Intake Total 1110 ml Output Total 0 ml Balance 1110 ml Laboratory Data 24H LABS Laboratory Tests 2 05/05/20 05:34: Nucleated Red Blood Cells % (auto) 0.0, Prothrombin Time 28.9H, Prothromb Time International Ratio 2.65, Anion Gap 8, Glomerular Filtration Rate 50.0, Calcium Level 8.7L CBC/BMP Laboratory Tests 05/05/20 05:34 Microbiology Microbiology 05/01/20 Urine Culture - Final, Complete Current Medications Current Medications Medications (Trade) Dose Ordered Sig/Yusra Route PRN Reason Start Time Stop Time Status Last Admin Dose Admin Acetaminophen (Tylenol Tab) 650 mg Q4H PRN PO PAIN OR FEVER 05/01/20 14:15 Amlodipine Besylate (Norvasc) 5 mg BID PO 05/01/20 21:00 05/05/20 08:33 Artificial Tears (Akwa Tears) 2 drop DAILY OU 05/02/20 09:00 05/05/20 08:32 Atorvastatin Calcium (Lipitor) 20 mg QHS PO 05/01/20 21:00 05/04/20 21:49 Bisoprolol Fumarate (Zebeta) 10 mg BID PO 05/01/20 21:00 05/05/20 09:58 Ceftriaxone Sodium 1 gm/ Dextrose 50 ml @ 100 mls/hr Q24H IV 05/01/20 16:00 05/04/20 16:33 Digoxin (Lanoxin) 0.125 mg MoWeFr@0900 PO 05/02/20 09:00 05/05/20 08:33 Enoxaparin Sodium (Lovenox) 40 mg DAILY SC 05/02/20 09:00 05/01/20 15:13 DC Furosemide (Lasix) 40 mg BID@0900,1700 PO 05/01/20 17:00 05/05/20 08:33 Home Med (Med Rec Complete!) ASDIRECTED XX 05/01/20 14:45 05/01/20 14:41 DC Labetalol HCl (Normodyne, Trandate) 10 mg STAT STAT IV 05/01/20 13:09 05/01/20 13:10 DC 05/01/20 13:46 Levothyroxine Sodium (Synthroid) 75 mcg DAILY@0600 PO 05/02/20 06:00 05/05/20 05:51 Potassium Chloride (Micro-K Extencaps) 10 meq DAILY PO 05/02/20 09:00 05/04/20 08:00 DC 05/03/20 08:13 Potassium Chloride (Micro-K Extencaps) 30 meq DAILY PO 05/05/20 09:00 05/05/20 08:34 Potassium Chloride (Potassium Chloride Liquid) 20 meq Q2H PO 05/04/20 06:30 05/04/20 08:31 DC 05/04/20 08:23 Sodium Chloride (Saline Lock Flush) 2 ml ASDIRECTED PRN IV SEE LABEL COMMENTS 05/01/20 17:15 Sodium Chloride (Saline Lock Flush) 2 ml SLF IV 05/01/20 22:00 05/05/20 05:51 Warfarin Sodium (Coumadin) 2 mg SuTuWeThSa@1700 PO 05/03/20 17:00 05/04/20 16:32 Warfarin Sodium (Coumadin) 5 mg QPM@1700 PO 05/01/20 17:00 05/04/20 16:33 Allergies Coded Allergies: Sulfa (Sulfonamide Antibiotics) (Verified Adverse Reaction, Intermediate, eyes red and swollen, 03/13/20) Christin Locke MD May 05, 2020 12:53
--- NOTE | 2020-05-05 12:54 | ECHO ---
DATE OF PROCEDURE: 05/02/2020 Age: 89 Gender: Female REFERRING PROVIDER: Dr. Christin Locke. PATIENT LOCATION: Room 3218. REASON FOR STUDY: Syncope. 2D MEASUREMENTS: IVS 1.6 cm LV 3.7 cm LVPW 1.6 cm LA 4.3 cm Aorta 2.8 cm IVC 1.4 cm DOPPLER MEASUREMENT Peak velocity across the aortic valve 3.1 m/s Peak velocity across the LVOT 0.82 m/s Peak gradient across the aortic valve 39 mmHg Mean gradient across the aortic valve 24 mmHg Mitral E 1.3 Maximum tricuspid valve velocity 3.1 m/s 2D COMMENTS: 1. Normal left ventricular size with moderately increased left ventricular wall thickness. Left ventricular systolic function is normal, estimated at 55% to 60%. 2. Mildly enlarged left atrium. The right atrium also appeared to be mildly enlarged. Normal right ventricle. 3. The atrial septum appeared to be normal without evidence of defect or shunt. 4. Normal aortic root. 5. No pericardial effusion seen. 6. Moderately calcified aortic valve with decreased leaflet excursion. Moderately calcified mitral annulus with normal anterior mitral valve leaflet motion. Normal tricuspid valve and pulmonic valve. The proximal pulmonary artery branches were not well visualized. 7. The inferior vena cava was normal in size, central venous pressure is most likely normal. 8. Pacemaker wire artifact noted in the right heart chambers. Doppler detects mild mitral regurgitation, moderate tricuspid regurgitation. The calculated pulmonary artery systolic pressure varies between 40 to 50 mmHg. Trace aortic regurgitation also detected. IMPRESSION: 1. Normal global left ventricular systolic function with moderate concentric left ventricular hypertrophy. Assessment of the left ventricular diastolic function was limited. 2. Moderate aortic stenosis with trace aortic regurgitation. 3. Mitral annulus calcification with mild mitral regurgitation and a mildly enlarged left atrium. 4. Moderate tricuspid regurgitation with moderate pulmonary hypertension. The right atrium appeared to be mildly enlarged. 5. Pacemaker wire artifacts noted in the right heart chambers. 6. Global longitudinal strains (GLS) was reported to be -14.9%. MTDD
[2020-05-05 16:00] VITALS: BP 162/70
[2020-05-05] MEDS: WARFARIN SOD 5MG TAB PO SCH (16:23)
[2020-05-05 20:00] VITALS: BP 148/70
[2020-05-05] MEDS: ATORVASTATIN 20 MG TAB PO SCH (21:30)
[2020-05-06] VITALS: BP 154/67
[2020-05-06 04:00] VITALS: BP 158/80
[2020-05-06] MEDS: SLF 3 ML SYR IV SCH ×3 (06:09→20:47)
[2020-05-06] MEDS: LEVOTHYROXINE 75MCG TABLET (0.075MG) PO SCH (06:16)
[2020-05-06 06:29] LABS: HEMOGLOBIN 11.6 g/dl (12.0-15.5); MEAN CORPUSCULAR HEMOGLOBIN 30.1 pg (27.0-33.0); MEAN CORPUSCULAR HGB CONC 31.4 g/dl (32.0-36.5); MEAN CORPUSCULAR VOLUME 95.9 fl (80.0-96.0); PLATELET COUNT, AUTOMATED 181 10^3/uL (150-450); RED BLOOD COUNT 3.86 10^6/uL (4.00-5.40); WHITE BLOOD COUNT 6.7 10^3/uL (4.0-10.0)
[2020-05-06 07:01] LABS: CALCIUM LEVEL 8.7 MG/DL (8.8-10.2); CREATININE FOR GFR 1.04 MG/DL (0.55-1.30); GLOMERULAR FILTRATION RATE 53.4 (>32); POTASSIUM SERUM 3.6 MEQ/L (3.5-5.1)
[2020-05-06 08:00] VITALS: BP 132/84
[2020-05-06] MEDS: POLYVINYL ALCOHOL OPHTH SOLN 15 ML(LIQUITEARS) OU SCH (09:59)
[2020-05-06] MEDS: bisoproloL fumarate 10 MG TAB PO SCH ×2 (10:00→20:33)
[2020-05-06] MEDS: FUROSEMIDE 40 MG TAB PO SCH ×2 (10:00→17:01)
[2020-05-06] MEDS: POTASSIUM CHLORIDE 10 MEQ SR TABLET PO SCH (10:01)
[2020-05-06] MEDS: amLODIPine 5 MG TAB PO SCH ×2 (10:01→20:34)
[2020-05-06 12:00] VITALS: BP 131/65
--- NOTE | 2020-05-06 15:31 | IPNPDOC ---
Date Seen The patient was seen on 05/06/20. Progress Note SUBJECTIVE: patient seen and examined at bedside. Doing well. Per sitter not acute events overnight, has had issues with wandering halls. Calm and cooperative. AAO x 2. Denies chest pain, fevers, chills, n/v/d. OBJECTIVE PHYSICAL EXAMINATION: VITAL SIGNS: Please see below. General: NAD, comfortable HEENT: PERRLA, EOMI, sclerae clear Neck: supple, normal ROM, no JVD Respiratory: lungs CTAB, no wheeze, no rales, no crackles CVS: RRR, normal S1, S2, no murmurs Abdo: soft, no masses, no hepatosplenomegaly, BS+, no rebound tenderness Extremities: no edema, pulses 2+ MSK: no joint deformities, normal ROM Neuro: no focal neuro deficits, moving all 4 extremities, CN2-12 intact. Strength 5/5 in all 4 extremities. No nystagmus. Psych: calm, cooperative, AAO x 2 LABORATORY DATA, IMAGING STUDIES, MICROBIOLOGY: Please see below. Echo (05/02/20) 1. Normal global left ventricular systolic function with moderate concentric left ventricular hypertrophy. Assessment of the left ventricular diastolic function was limited. 2. Moderate aortic stenosis with trace aortic regurgitation. 3. Mitral annulus calcification with mild mitral regurgitation and a mildly enlarged left atrium. 4. Moderate tricuspid regurgitation with moderate pulmonary hypertension. The right atrium appeared to be mildly enlarged. 5. Pacemaker wire artifacts noted in the right heart chambers. 6. Global longitudinal strains (GLS) was reported to be -14.9%. Doppler carotids: Less than 50% category narrowing in the right internal carotid artery by Doppler velocity criteria. Stenotic flow velocities are observed in the external carotid artery on the right. No vertebral artery flow could be detected on the right. Question occlusion. Less than 50% category narrowing in the left ICA by Doppler velocity criteria. Mildly increased peak systolic flow velocities are observed in the external carotid artery on the left. Reversed flow is observed in the left vertebral artery raising susp icion of subclavian artery stenosis or occlusion, subclavian steal phenomena. CT head: 1. Moderately severe diffuse atrophy with proportionate ventriculomegaly. Extensive chronic small vessel white matter ischemic changes of aging. Findings similar to the previous studies. 2. No intracranial hemorrhage, acute infarct, mass or mass effect. 3. Vascular calcifications in the carotid siphons. 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 CXR: 1. Cardiomegaly with left atrial and ventricular enlargement and vascular redistribution with both alveolar and interstitial pulmonary edema. Concurrent pneumonitis difficult to exclude radiographically. Small effusions, right greater than left. 2. Dual lead pacer and previous sternotomy with multiple mediastinal clips. CT chest: 1. Bilateral pleural effusions, moderate on the right extending up to the apex, smaller on the left but also extending upward to above the aortic arch. There is compressive atelectasis or consolidative infiltrate adjacent to the pleural effusion on both sides. That layering effusion and infiltrates cause the appearance on radiograph. I cannot see interstitial edema in the lung smith. There are few scattered small noncalcified nodules peripherally in the lower lobes and a c alcified granuloma in the right upper lobe. 2. Dual lead pacer, prior sternotomy, cardiomegaly with left atrial and ventricular enlargement are noted. Aortic with calcifications but no aneurysm. Deg enerative changes but no acute bony findings. CT cervical spine: Some mild degenerative changes without fracture, avulsion or malalignment in the cervical spine. Uncinate spurring on the left at C5-6 with mild foraminal encroachment. No significant or acute bony finding. Right pleural effusion seen at the apex and bilateral apical pleural scarring present. ASSESSMENT: 89-year-old female with past medical history of coronary artery disease status post DE 2, hypertension, chronic atrial fibrillation, hypothyroidism, hypokalemia, history of recurrent urinary tract infection admitted for syncope r/o cardiac vs. neuro cause, hypertensive emergency. PLAN: #Age related memory loss vs. dementia -Wanders and requiring sitter at bedside -Pleasantly confused currently -Her daughter has been helping with mother's medical care along with home health aid who recently quit -will require SNF #Syncope, r/o vasovagal vs. orthostatic hypotension vs. 2/2 uncontrolled HTN. -No tele events or syncopal episodes since admission -Carotid doppler above: Could not r/o subclavian artery occulsion vs. subclavian steal syndrome but no arm claudication, difference in blood pressures between arms, vertigo. Low suspicion. Wanted to discuss with vascular surgery plastic and reconstructive surgeon but none for the next two days: Consider o/p f/u with them -ECG: ventricular paced -Echocardiogram: moderate aortic stenosis, gradient 39 mmHg. D/w Dr. Quinones, moderate likely not contributing given normal LVEF. -BP control with home meds and PRN meds. -PT: recommending rehab #HTN -Stable -Monitor closely on tele. -C/w all home medications. #Unsteady gait likely multifactorial 2/2 to physical deconditioning, poor eyesite. -Hx of recent falls with hitting head -PT: recommending rehab -Also made aware today that Adult Protective Services has concerns about patient's living situation. -PFS touched base with daughter , pending placement to SNF -C/w PT/OT #Chronic atrial fibrillation, dual lead PM -INR therapeutic on coumadin. -C/w BB, digoxin, warfarin at home dosing #CAD s/p [place] x 2 -Denies chest pain, n/v, shortness of breath -ECG: ventricularly paced. -Trops neg -Monitor on tele -C/w home cardiac medications #Hypokalemia, chronic and likely 2/2 to lasix use -C/w potassium supplement #Hx of recurrent UTI -UA + -UCx: NG #Bilateral pleural effusions -Saturating well on RA -Identified on imaging above -C/w home lasix. # HLD -C/w statin # Hypothyroidism -C/w home levothyroxine #DVT px -C/w warfarin home dose DISPOSITION: PT: unsafe to return to home currently. PFS has been in contact with daughter and she agrees to plan which is likely SNF. VS, I&O, 24H, Fishbone Vital Signs/I&O Vital Signs Date Time Temp Pulse Resp B/P (MAP) Pulse Ox O2 Delivery O2 Flow Rate FiO2 05/06/20 12:00 97.1 68 18 131/65 (87) 97 Room Air I&O- Last 24 Hours up to 6 AM 05/06/20 06:00 Intake Total 600 ml Output Total 0 ml Balance 600 ml Laboratory Data 24H LABS Laboratory Tests 2 05/06/20 05:49: Nucleated Red Blood Cells % (auto) 0.0, Anion Gap 4L, Glomerular Filtration Rate 53.4, Calcium Level 8.7L 05/06/20 11:56: Coronavirus (COVID-19)(PCR) NEGATIVE CBC/BMP Laboratory Tests 05/06/20 05:49 Microbiology Microbiology 05/01/20 Urine Culture - Final, Complete HALLIE ROBINS MD May 06, 2020 15:31
[2020-05-06 16:00] VITALS: BP 136/67
[2020-05-06] MEDS: WARFARIN SOD 5MG TAB PO SCH (17:01)
[2020-05-06] MEDS: WARFARIN SOD 2MG TAB PO SCH (17:01)
[2020-05-06 20:00] VITALS: BP 123/52
[2020-05-06] MEDS: ATORVASTATIN 20 MG TAB PO SCH (20:33)
[2020-05-07 04:00] VITALS: BP 133/63
[2020-05-07] MEDS: SLF 3 ML SYR IV SCH ×2 (05:00→08:56)
[2020-05-07] MEDS: LEVOTHYROXINE 75MCG TABLET (0.075MG) PO SCH (05:00)
[2020-05-07 06:32] LABS: HEMATOCRIT 35.2 % (36.0-47.0); HEMOGLOBIN 10.9 g/dl (12.0-15.5); MEAN CORPUSCULAR HEMOGLOBIN 29.8 pg (27.0-33.0); MEAN CORPUSCULAR VOLUME 96.2 fl (80.0-96.0); PLATELET COUNT, AUTOMATED 188 10^3/uL (150-450); RED BLOOD COUNT 3.66 10^6/uL (4.00-5.40)
[2020-05-07 06:58] LABS: CALCIUM LEVEL 8.5 MG/DL (8.8-10.2); CREATININE FOR GFR 1.18 MG/DL (0.55-1.30); GLOMERULAR FILTRATION RATE 46.1 (>32); POTASSIUM SERUM 3.6 MEQ/L (3.5-5.1)
[2020-05-07 08:00] VITALS: BP 142/65
[2020-05-07] MEDS: bisoproloL fumarate 10 MG TAB PO SCH (08:54)
[2020-05-07 08:55] VITALS: BP 142/70
[2020-05-07] MEDS: FUROSEMIDE 40 MG TAB PO SCH (08:55)
[2020-05-07] MEDS: amLODIPine 5 MG TAB PO SCH (08:55)
[2020-05-07] MEDS: DIGOXIN 0.125 MG TAB PO SCH (08:55)
[2020-05-07] MEDS: POLYVINYL ALCOHOL OPHTH SOLN 15 ML(LIQUITEARS) OU SCH (08:56)
[2020-05-07] MEDS: POTASSIUM CHLORIDE 10 MEQ SR TABLET PO SCH (08:56)
[2020-05-07] MEDS ORDERED: ACET1TAB55 PO (11:36)
--- NOTE | 2020-05-07 11:37 | DS.PDOC ---
Discharge Summary General Date of Admission May 01, 2020 at 14:07 Date of Discharge 05/07/20 Discharge Summary PROCEDURES PERFORMED DURING STAY: [None]. ADMITTING DIAGNOSES: Syncope Hypertensive emergency Chronic atrial fibrillation, dual lead pacemaker CAD s/p PA x 2 Hypokalemia Hx of recurrent UTI Bilateral pleural effusions HDL Hypothyroidism DISCHARGE DIAGNOSES: Syncope Hypertensive emergency Chronic atrial fibrillation, dual lead pacemaker CAD s/p PA x 2 Hypokalemia Hx of recurrent UTI Bilateral pleural effusions HDL Hypothyroidism COMPLICATIONS/CHIEF COMPLAINT: Syncope. HISTORY OF PRESENT ILLNESS: Patient is an 89-year-old female with past medical history of coronary artery disease status post PA 2, hypertension, chronic atrial fibrillation, hypothyroidism, hypokalemia, history of recurrent urinary tract infection who presented to [facility] after having been found unconscious by her daughter at home. According to accounts her daughter found her mother unresponsive in the next room over. Her daughter has been coming over to check on her periodically as her mom's vision has been worsening and her home health aide has not been available for the past 2 weeks to help. When she checked her mom's pulse she stated that she didn't feel one. She called 911. EMS responded and found the patient to have a systolic blood pressure of 200 mmHg, she withdrew to pain but her eyes were shot and she couldn't verbalize or follow commands. She was taken to the emergency room for further evaluation. The emergency room CT of the head, neck were negative. She had a ventricular paced rhythm on ECG. Labs were unremarkable. She had no neurological deficits on exam. After a smoker to time the patient was awake alert and oriented 3. She had not remember the events of earlier completely but states that when she woke up she was in her house with EMS present. She does not recall any chest pain, shortness of breath, palpitations, lightheadedness, dizziness, recent falls, recent medication changes, fevers, chills, recent illnesses, decreased appetite, blurry vision, extremity weakness prior to her unconscious event. She also denies any bowel or bladder loss when she woke up or tongue biting. There was no noted seizure activity by EMS or her daughter. In the emergency room blood pressure was found to be 170 systolic. The patient states her blood pressure is always high like this and she is on multiple medications at home which she states to be compliant with. She has been having a difficult time living on her own due to decreased eyesight and not having a home health aide available. The patient was ultimately admitted for syncope, hypertensive emergency. HOSPITAL COURSE: #Age related memory loss vs. dementia -[place]anders and requiring sitter at bedside -Pleasantly confused currently -Her daughter has been helping with mother's medical care along with home health aid who recently quit -will require SNF #Syncope, r/o vasovagal vs. orthostatic hypotension vs. 2/2 uncontrolled HTN. -No tele events or syncopal episodes since admission -Carotid doppler above: Could not r/o subclavian artery occulsion vs. subclavian steal syndrome but no arm claudication, difference in blood pressures between arms, vertigo. Low suspicion. Wanted to discuss with vascular surgery child development consultant but none for the next two days: Consider o/p f/u with them -ECG: ventricular paced -Echocardiogram: moderate aortic stenosis, gradient 39 mmHg. D/w Dr. Quinones, moderate likely not contributing given normal LVEF. -BP control with home meds and PRN meds. -PT: recommending rehab #HTN -Stable -Monitor closely on tele. -C/w all home medications. #Unsteady gait likely multifactorial 2/2 to physical deconditioning, poor eyesite. -Hx of recent falls with hitting head -PFS touched base with daughter , pending placement to SNF -C/w PT/OT #Chronic atrial fibrillation, dual lead PM -INR therapeutic on coumadin. -C/w BB, digoxin, warfarin at home dosing #CAD s/p PA x 2 -Denies chest pain, n/v, shortness of breath -ECG: ventricularly paced. -Trops neg -Monitor on tele -C/w home cardiac medications #Hypokalemia, chronic and likely 2/2 to lasix use -C/w potassium supplement #Hx of recurrent UTI -UA + -UCx: NG #Bilateral pleural effusions -Saturating well on RA -Identified on imaging above -C/w home lasix. # HLD -C/w statin # Hypothyroidism -C/w home levothyroxine DISCHARGE MEDICATIONS: Please see below. ALLERGIES: Please see below. PHYSICAL EXAMINATION ON DISCHARGE: VITAL SIGNS: Please see below. General: NAD, comfortable HEENT: PERRLA, EOMI, sclerae clear Neck: supple, normal ROM, no JVD Respiratory: lungs CTAB, no wheeze, no rales, no crackles CVS: RRR, normal S1, S2, no murmurs Abdo: soft, no masses, no hepatosplenomegaly, BS+, no rebound tenderness Extremities: no edema, pulses 2+ MSK: no joint deformities, normal ROM Neuro: no focal neuro deficits, moving all 4 extremities, CN2-12 intact. Strength 5/5 in all 4 extremities. No nystagmus. Psych: calm, cooperative, AAO x 2 LABORATORY DATA: Please see below. IMAGING: Echo (05/02/20) 1. Normal global left ventricular systolic function with moderate concentric left ventricular hypertrophy. Assessment of the left ventricular diastolic function was limited. 2. Moderate aortic stenosis with trace aortic regurgitation. 3. Mitral annulus calcification with mild mitral regurgitation and a mildly enlarged left atrium. 4. Moderate tricuspid regurgitation with moderate pulmonary hypertension. The right atrium appeared to be mildly enlarged. 5. Pacemaker wire artifacts noted in the right heart chambers. 6. Global longitudinal strains (GLS) was reported to be -14.9%. Doppler carotids: Less than 50% category narrowing in the right internal carotid artery by Doppler velocity criteria. Stenotic flow velocities are observed in the external carotid artery on the right. No vertebral artery flow could be detected on the right. Question occlusion. Less than 50% category narrowing in the left ICA by Doppler velocity criteria. Mildly increased peak systolic flow velocities are observed in the external carotid artery on the left. Reversed flow is observed in the left vertebral artery raising suspicion of subclavian artery stenosis or occlusion, subclavian steal phenomena. CT head: 1. Moderately severe diffuse atrophy with proportionate ventriculomegaly. Extensive chronic small vessel white matter ischemic changes of aging. Findings similar to the previous studies. 2. No intracranial hemorrhage, acute infarct, mass or mass effect. 3. Vascular calcifications in the carotid siphons. 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 CXR: 1. Cardiomegaly with left atrial and ventricular enlargement and vascular redistribution with both alveolar and interstitial pulmonary edema. Concurrent pneumonitis difficult to exclude radiographically. Small effusions, right greater than left. 2. Dual lead pacer and previous sternotomy with multiple mediastinal clips. CT chest: 1. Bilateral pleural effusions, moderate on the right extending up to the apex, smaller on the left but also extending upward to above the aortic arch. There is compressive atelectasis or consolidative infiltrate adjacent to the pleural effusion on both sides. That layering effusion and infiltrates cause the appearance on radiograph. I cannot see interstitial edema in the lung smith. There are few scattered small noncalcified nodules peripherally in the lower lobes and a calcified granuloma in the right upper lobe. 2. Dual lead pacer, prior sternotomy, cardiomegaly with left atrial and ventricular enlargement are noted. Aortic with calcifications but no aneurysm. Degenerative changes but no acute bony findings. CT cervical spine: Some mild degenerative changes without fracture, avulsion or malalignment in the cervical spine. Uncinate spurring on the left at C5-6 with mild foraminal encroachment. No significant or acute bony finding. Right pleural effusion seen at the apex and bilateral apical pleural scarring present. PROGNOSIS: Good ACTIVITY: [As tolerated]. DIET: Low-cholesterol DISCHARGE PLAN: Transfer to [facility]. DISPOSITION: . DISCHARGE INSTRUCTIONS: 1. Please follow-up with your primary care doctor within 3-5 days 2. Please taking medications as prescribed. 3. If he developed bleeding, chest pain, shortness of breath, seizures, nausea, fevers, or otherwise worsening of your symptoms, please call 911 or return to the nearest emergency room Follow up: Referral to Vascular Surgery from PCP. DISCHARGE CONDITION: [Stable]. TIME SPENT ON DISCHARGE: Greater than 30 minutes. Vital Signs/I&Os Vital Signs Date Time Temp Pulse Resp B/P (MAP) Pulse Ox O2 Delivery O2 Flow Rate FiO2 05/07/20 08:55 70 05/07/20 08:55 142/70 05/07/20 08:00 98.0 18 97 Room Air I&O- Last 24 Hours up to 6 AM 05/07/20 06:00 Intake Total 960 ml Output Total 900 ml Balance 60 ml Laboratory Data Labs 24H Laboratory Tests 2 05/06/20 11:56: Coronavirus (COVID-19)(PCR) NEGATIVE 05/07/20 05:36: Nucleated Red Blood Cells % (auto) 0.0, Anion Gap 7L, Glomerular Filtration Rate 46.1, Calcium Level 8.5L CBC/BMP Laboratory Tests 05/07/20 05:36 Microbiology Microbiology 05/01/20 Urine Culture - Final, Complete Discharge Medications Scheduled Amlodipine Besylate (Amlodipine Besylate) 5 Mg Tablet, 5 MG PO BID, (Reported) Atorvastatin Calcium (Atorvastatin Calcium) 20 Mg Tab, 20 MG PO QHS, (Reported) Bisoprolol Fumarate (Bisoprolol Fumarate) 10 Mg Tab, 10 MG PO BID, (Reported) Digoxin (Digoxin) 125 Mcg Tablet, 125 MCG PO 3XW, (Reported) MON, WED, FRI Furosemide (Furosemide) 40 Mg Tab, 40 MG PO BID, (Reported) TAKES AM AND NOON Ketotifen Fumarate (Zaditor) 0.025 % Avery, 1 DROP OU QHS, (Reported) Levothyroxine Sodium (Levothyroxine Sodium) 75 Mcg Tablet, 75 MCG PO DAILY, (Reported) Potassium Chloride (Klor-Con M10) 10 Meq Tabcr, 10 MEQ PO DAILY, (Reported) Propylene Glycol/Peg 400 (Systane 0.3-0.4% Eye Drops) 15 Ml Debbie, 2 DROP OU DAILY, (Reported) Warfarin Sodium (Warfarin Sodium) 5 Mg Tablet, 5 MG PO QPM, (Reported) Warfarin Sodium (Warfarin Sodium) 1 Mg Tablet, 2 MG PO 5XW, (Reported) 7MG TOTAL ON TUE, , TUE, , SAT Scheduled PRN Acetaminophen (Acetaminophen) 325 Mg Tablet, 650 MG PO Q6HP PRN for PAIN OR FEVER Allergies Coded Allergies: Sulfa (Sulfonamide Antibiotics) (Verified Adverse Reaction, Intermediate, eyes red and swollen, 03/13/20) HALLIE ROBINS MD May 07, 2020 11:37
== END 2020-05-07 12:57 | DRG 312 ==
LOC: EDBD 11:30 → M ED 11:30 → M ED INP 14:07 → ENRESERV 14:37 → M PCU 15:24
PROVIDERS: ADMIT Internal Medicine; ATTEND Family Medicine
DX: R55 Syncope and collapse (principal); J90 Pleural effusion, not elsewhere classified; I48.20 Chronic atrial fibrillation, unspecified; E03.9 Hypothyroidism, unspecified; F03.90 Unspecified dementia, unspecified severity, without behavioral disturbance, psychotic disturbance, mood disturbance, and anxiety; I16.0 Hypertensive urgency; Z95.0 Presence of cardiac pacemaker; E87.6 Hypokalemia; I25.2 Old myocardial infarction; Z79.899 Other long term (current) drug therapy; Z88.2 Allergy status to sulfonamides; Z79.01 Long term (current) use of anticoagulants